=== PATIENT | male | born 1955 | race Two or more races ===

== ENCOUNTER 2023-05-04 09:08 | Emergency (ER) | payer OTHER, MEDICARE, MEDICAID ==
[~2023-05-04] VITALS: Ht 180.3 cm; Wt 80.0 kg
[~2023-05-04 09:08] MED LIST: AMOX-117 PO; CARB-313 PO; DOXA1TAB2 PO; ENTA200T5 PO; GABA600T13 PO; HYDR-3964 PO; IPRA3AMP31 NEB; LEVE250T PO; LORA-268 PO; PARO10TA4 PO; PREG50CA65 PO; QUET25TA36 PO; VALP250S3 PO
[2023-05-04 09:24] VITALS: BP 112/65; PULSE 60; TEMP 97.7; O2SAT 100
[2023-05-04] MEDS ORDERED: LORazepam 2 mg/ml vial ONE (09:58)
[2023-05-04 10:00] VITALS: RESP 17
[2023-05-04] MEDS ORDERED: LORazepam 2 mg/ml vial IV ONE (10:00)
--- NOTE | 2023-05-04 10:15 | NUR ---
pt self-removed iv while attempting to get blood pressure, catheter fully intact. informed. no new order to place another IV.
[2023-05-04 10:28] LABS: BASOPHILS % (AUTO) 0.5 % (0-1); EOSINOPHILS # (AUTO) 0.2 X10'3 (0-0.9); EOSINOPHILS % (AUTO) 1.9 % (0-6); HEMATOCRIT 38.5 % (42.0-52.0); HEMOGLOBIN 12.4 g/dl (14.0-17.9); LYMPHOCYTES # (AUTO) 1.2 X10'3 (1.1-4.8); LYMPHOCYTES % (AUTO) 14.5 % (21-51); MEAN CORPUSCULAR HEMOGLOBIN 28.5 PG (27.0-31.0); MEAN CORPUSCULAR HGB CONC 32.1 g/dL (33.0-36.5); MEAN CORPUSCULAR VOLUME 88.8 FL (78-98); MEAN PLATELET VOLUME 7.9 FL (7.4-10.4); MONOCYTES % (AUTO) 12.1 % (2-12); NEUTROPHILS # (AUTO) 5.8 X10'3 (1.8-7.7); PLATELET COUNT 227 X10'3 (140-440); RED BLOOD COUNT 4.33 X10'6 (4.70-6.10); RED CELL DISTRIBUTION WIDTH 14.3 % (11.5-14.5); WHITE BLOOD COUNT 8.1 X10'3 (4.5-11.0)
[2023-05-04 10:40] LABS: BILIRUBIN,URINE NEGATIVE (Neg); CLARITY,URINE CLOUDY (Clear); COLOR,URINE YELLOW (Yellow); GLUCOSE, URINE NEGATIVE (Neg); KETONES,URINE TRACE mg/dl (Neg); LEUKOCYTE ESTERASE ,URINE LARGE (Neg); NITRITES, URINE NEGATIVE (Neg); OCCULT BLOOD,URINE NEGATIVE (Neg); PH,URINE 6.5 (4.8-8.0); PROTEIN,URINE TRACE mg/dl (Neg); UROBILINOGEN,URINE 0.2 E.U/dL (0.2-1.0)
--- NOTE | 2023-05-04 10:45 | NUR ---
dr. wang and baylee barrios spoke with pt's family. explained poc and pt condition, pt verbalized understanding.
[2023-05-04 10:46] LABS: UA COLLECTION TYPE VOIDED
[2023-05-04 10:47] LABS: BACTERIA,URINE 1+ /HPF (Neg); MUCUS STRANDS NONE SEEN /LPF (Neg); RBC,URINE NONE SEEN /HPF (0-2); SQUAMOUS EPITHELIAL CELL,UR MODERATE /LPF (FEW); TRANSITIONAL EPI CELLS,URINE FEW /HPF; WBC,URINE TNTC /HPF (0-4)
[2023-05-04 10:48] LABS: ALANINE AMINOTRANSFERASE 6 U/L (12-78); ALBUMIN 2.6 G/DL (3.4-5.0); ALBUMIN/GLOBULIN RATIO 0.7 (1.1-1.5); ALKALINE PHOSPHATASE 88 IU/L (46-116); ANION GAP 3 (8-16); ASPARTATE AMINO TRANSFERASE 6 U/L (10-37); BILIRUBIN,TOTAL 0.2 MG/DL (0.1-1.0); BLOOD UREA NITROGEN 22 MG/DL (7-18); BUN/CREATININE RATIO 29.7 (10.0-20.0); CALCIUM 8.7 MG/DL (8.5-10.1); CHLORIDE 105 MMOL/L (99-107); CREATININE 0.74 MG/DL (0.60-1.10); GLUCOSE 53 MG/DL (70-104); SODIUM 138 MMOL/L (135-145); TOTAL CARBON DIOXIDE 30.2 MMOL/L (24-32); TOTAL PROTEIN 6.4 G/DL (6.4-8.2); eCRCL 102 ML/MIN; eGFR > 90 ML/MIN
[2023-05-04 10:57] LABS: MAGNESIUM 2.1 MG/DL (1.5-2.4); PRO BRAIN NATRIURETIC PEPTIDE 115 PG/ML (0-125)
--- NOTE | 2023-05-04 11:45 | NUR ---
spoke with family regarding discharge plan, verbalized understanding. will call desean once pt is transported back to facility.
--- NOTE | 2023-05-04 12:14 | NUR ---
report called to espinoza at [facility]. all questions answered at this time.
== END 2023-05-04 12:17 | disposition home or self-care (01) ==
LOC: ER 09:09
DX: R45.1 Restlessness and agitation (principal); F03.90 Unspecified dementia, unspecified severity, without behavioral disturbance, psychotic disturbance, mood disturbance, and anxiety
CPT/HCPCS: 36415; 71045; 80053; 81001; 83735; 83880; 84484; 85025; 87077; 87088; 87186; 93005; 96374; 99285; J2060

== ENCOUNTER 2023-05-22 11:09 | Emergency (ER) | payer OTHER, MEDICARE, MEDICAID ==
[~2023-05-22] VITALS: Ht 180.3 cm; Wt 60.0 kg
[2023-05-22] MEDS ORDERED: CefTRIAXone 2gm/D5W 50ml BAG 50 ML IV ONE (11:15)
[2023-05-22] MEDS ORDERED: iohexol 350MG/ML 100ml bottle IV ONE (11:18)
[2023-05-22 11:46] VITALS: TEMP 97.8
[2023-05-22 11:46] LABS: BASOPHILS % (AUTO) 0.6 % (0-1); EOSINOPHILS # (AUTO) 0.2 X10'3 (0-0.9); EOSINOPHILS % (AUTO) 2.3 % (0-6); HEMATOCRIT 36.6 % (42.0-52.0); HEMOGLOBIN 12.1 g/dl (14.0-17.9); LYMPHOCYTES # (AUTO) 1.2 X10'3 (1.1-4.8); LYMPHOCYTES % (AUTO) 16.4 % (21-51); MEAN CORPUSCULAR HEMOGLOBIN 28.9 PG (27.0-31.0); MEAN CORPUSCULAR HGB CONC 33.2 g/dL (33.0-36.5); MEAN CORPUSCULAR VOLUME 86.9 FL (78-98); MEAN PLATELET VOLUME 7.1 FL (7.4-10.4); MONOCYTES # (AUTO) 0.6 X10'3 (0-0.9); MONOCYTES % (AUTO) 8.9 % (2-12); NEUTROPHILS # (AUTO) 5.2 X10'3 (1.8-7.7); NEUTROPHILS % (AUTO) 71.8 % (42-75); PLATELET COUNT 291 X10'3 (140-440); RED BLOOD COUNT 4.21 X10'6 (4.70-6.10); WHITE BLOOD COUNT 7.3 X10'3 (4.5-11.0)
[2023-05-22 12:07] LABS: ALANINE AMINOTRANSFERASE 7 U/L (12-78); ALBUMIN 2.4 G/DL (3.4-5.0); ALBUMIN/GLOBULIN RATIO 0.6 (1.1-1.5); ALKALINE PHOSPHATASE 80 IU/L (46-116); ANION GAP 3 (8-16); APTT 32 SECONDS (22-32); ASPARTATE AMINO TRANSFERASE 11 U/L (10-37); BILIRUBIN,TOTAL 0.3 MG/DL (0.1-1.0); BLOOD UREA NITROGEN 29 MG/DL (7-18); BUN/CREATININE RATIO 38.7 (10.0-20.0); CALCIUM 8.6 MG/DL (8.5-10.1); CHLORIDE 103 MMOL/L (99-107); CREATININE 0.75 MG/DL (0.60-1.10); GLUCOSE 82 MG/DL (70-104); POTASSIUM 4.3 MMOL/L (3.5-5.1); PROTHROMBIN TIME 10.7 SECONDS (9.0-12.0); SODIUM 136 MMOL/L (135-145); TOTAL CARBON DIOXIDE 29.8 MMOL/L (24-32); TOTAL PROTEIN 6.7 G/DL (6.4-8.2); eCRCL 80 ML/MIN; eGFR > 90 ML/MIN
[2023-05-22] MEDS ORDERED: levetiracetam inj 500 MG in normal saline 100ml IV soln 95 ML IV SCH (12:15)
[2023-05-22] MEDS ORDERED: levetiracetam inj 500 MG in normal saline 100ml IV soln 100 ML IV ONE (12:19)
[2023-05-22] MEDS ORDERED: LORazepam 0.5 MG tablet PO PRN (15:20)
[2023-05-22 16:27] VITALS: BP 149/87; PULSE 67; RESP 16; O2SAT 96
== END 2023-05-22 16:42 | disposition home or self-care (01) ==
LOC: ER 11:09
DX: R56.9 Unspecified convulsions (principal); E86.0 Dehydration; G20.A1 Parkinson's disease without dyskinesia, without mention of fluctuations; F02.80 Dementia in other diseases classified elsewhere, unspecified severity, without behavioral disturbance, psychotic disturbance, mood disturbance, and anxiety; I25.10 Atherosclerotic heart disease of native coronary artery without angina pectoris; Z79.2 Long term (current) use of antibiotics; Z79.899 Other long term (current) drug therapy; Z88.1 Allergy status to other antibiotic agents; Z88.8 Allergy status to other drugs, medicaments and biological substances
CPT/HCPCS: 36415; 70450; 70496; 70498; 71045; 80053; 82948; 83605; 85025; 85610; 85730; 87040; 93005; 96365; 96367; 99285; C8957; J0696; J1953; J3490; Q9967; A4314

== ENCOUNTER 2023-07-15 16:46 | Emergency (ER) | payer OTHER, MEDICARE, MEDICAID ==
[~2023-07-15] VITALS: Ht 182.9 cm; Wt 72.7 kg
[2023-07-15 17:25] VITALS: BP 120/84; PULSE 60; RESP 18; TEMP 98; O2SAT 100
== END 2023-07-15 18:56 | disposition home or self-care (01) ==
LOC: ER 16:46
DX: G20.A1 Parkinson's disease without dyskinesia, without mention of fluctuations (principal); Z88.8 Allergy status to other drugs, medicaments and biological substances; Z88.1 Allergy status to other antibiotic agents; Z79.2 Long term (current) use of antibiotics; Z79.899 Other long term (current) drug therapy
CPT/HCPCS: 99284

== ENCOUNTER 2024-05-05 16:41 | Inpatient (IN) | payer MEDICARE, OTHER ==
[~2024-05-05] VITALS: Ht 167.6 cm; Wt 67.0 kg
[~2024-05-05 16:41] MED LIST changes: +GABA-1405 PO; -GABA600T13 PO; +VALP250S26 PO; -VALP250S3 PO
[2024-05-05] MEDS: normal saline 1000ml 1,000 ML IV ONE ×4 (17:11→19:28)
[2024-05-05] MEDS: acetaminophen 1,000mg/100ml IV 100 ML IV SCH (17:38)
[2024-05-05] MEDS ORDERED: cefepime 2g/NS 100ml ADVANTAGE 100 ML IV STA (17:43)
[2024-05-05 17:47] LABS: BILIRUBIN,URINE NEGATIVE (Neg); CLARITY,URINE CLOUDY (Clear); COLOR,URINE YELLOW (Yellow); GLUCOSE, URINE NEGATIVE (Neg); KETONES,URINE 15 mg/dl (Neg); LEUKOCYTE ESTERASE ,URINE MODERATE (Neg); NITRITES, URINE NEGATIVE (Neg); OCCULT BLOOD,URINE MODERATE (Neg); PROTEIN,URINE 30 mg/dl (Neg); UROBILINOGEN,URINE 0.2 E.U/dL (0.2-1.0)
[2024-05-05 17:50] LABS: BASOPHILS % (AUTO) 0.1 % (0-1); EOSINOPHILS % (AUTO) 0 % (0-6); HEMATOCRIT 35.7 % (42.0-52.0); HEMOGLOBIN 11.5 g/dl (14.0-17.9); LYMPHOCYTES # (AUTO) 0.3 X10'3 (1.1-4.8); LYMPHOCYTES % (AUTO) 2.7 % (21-51); MEAN CORPUSCULAR HEMOGLOBIN 27.9 PG (27.0-31.0); MEAN CORPUSCULAR HGB CONC 32.2 g/dL (33.0-36.5); MEAN CORPUSCULAR VOLUME 86.8 FL (78-98); MEAN PLATELET VOLUME 7.4 FL (7.4-10.4); MONOCYTES # (AUTO) 0.6 X10'3 (0-0.9); MONOCYTES % (AUTO) 6.3 % (2-12); NEUTROPHILS # (AUTO) 8.5 X10'3 (1.8-7.7); NEUTROPHILS % (AUTO) 90.9 % (42-75); PLATELET COUNT 198 X10'3 (140-440); RED BLOOD COUNT 4.12 X10'6 (4.70-6.10); RED CELL DISTRIBUTION WIDTH 15.7 % (11.5-14.5); WHITE BLOOD COUNT 9.4 X10'3 (4.5-11.0)
[2024-05-05 17:51] LABS: UA COLLECTION TYPE FOLEY CATH
[2024-05-05 17:54] LABS: ALBUMIN 2.4 G/DL (3.4-5.0); ANION GAP 11 (8-16); BLOOD UREA NITROGEN 42 MG/DL (7-18); BUN/CREATININE RATIO 33.9 (10.0-20.0); CALCIUM 8.3 MG/DL (8.5-10.1); CHLORIDE 110 MMOL/L (99-107); CREATININE 1.24 MG/DL (0.60-1.10); GLUCOSE 141 MG/DL (70-104); MAGNESIUM 2.1 MG/DL (1.5-2.4); POTASSIUM 3.5 MMOL/L (3.5-5.1); SODIUM 146 MMOL/L (135-145); TOTAL CARBON DIOXIDE 24.7 MMOL/L (24-32); eCRCL 51 ML/MIN; eGFR 58 ML/MIN
[2024-05-05] MEDS: azithromycin/NS 500mg/250ml 250 ML IV ONE (17:54)
[2024-05-05] MEDS: CEFEPIME 2gm in D5W 50mL 50 ML IV STA (17:58)
[2024-05-05 18:07] LABS: BACTERIA,URINE 3+ /HPF (Neg); SQUAMOUS EPITHELIAL CELL,UR NONE SEEN /LPF (FEW); WBC,URINE TNTC /HPF (0-4)
[2024-05-05] MEDS: amiodarone 150mg/dext, iso-os 100 ML IV ONE (18:32)
[2024-05-05] MEDS: amiodarone/D5 360MG/200ML BAG 200 ML IV SCH ×3 (18:59→23:20)
[2024-05-05] MEDS ORDERED: QUET50TA PO (20:02)
[2024-05-05] MEDS: levetiracetam 250mg tablet PO ONE (20:08)
[2024-05-05] MEDS: acetaminophen 1,000mg/100ml IV 100 ML IV ONE (20:09)
[2024-05-05] MEDS ORDERED: TRAM50TA2 PO (20:11)
[2024-05-05] MEDS ORDERED: MELA3CAP2 PO (20:11)
[2024-05-05] MEDS ORDERED: METO-539 PO (20:11)
[2024-05-05] MEDS ORDERED: TUBE5VIA3 TD (20:11)
[2024-05-05] MEDS ORDERED: FAMO-129 PO (20:11)
[2024-05-05] MEDS ORDERED: SACC250C9 PO (20:11)
[2024-05-05] MEDS ORDERED: VALP500V2 PO (20:11)
[2024-05-05] MEDS ORDERED: TYL650S RC (20:11)
[2024-05-05] MEDS ORDERED: LEVE250T4 PO (20:11)
[2024-05-05] MEDS ORDERED: SPIR25TA PO (20:11)
[2024-05-05] MEDS ORDERED: MAG30ORA PO (20:11)
[2024-05-05] MEDS ORDERED: POLY17PO10 PO (20:11)
[2024-05-05] MEDS ORDERED: DOCU100C40 PO (20:11)
[2024-05-05] MEDS ORDERED: SENN-360 PO (20:11)
[2024-05-05] MEDS ORDERED: MAGN400O6 PO (20:16)
[2024-05-05] MEDS ORDERED: NA P133E4 RC (20:16)
[2024-05-05] MEDS ORDERED: BISA10SU60 RC (20:16)
[2024-05-05] MEDS: NORepinephrine 8mg/ 250ml NS 250 ML IV PRN (20:57)
[2024-05-05] MEDS: NORepinephrine 8mg/ 250ml NS 250 ML IV SCH (21:20)
[2024-05-05] MEDS: carbidoba-levodopa 25-100mg tablet PO SCH (21:40)
[2024-05-05] MEDS: diltiazem 5mg/ml 5ml inj. IV ONE (23:20)
[2024-05-05] MEDS: levetiracetam-NACL1000mg/100ml 100 ML IV ONE (23:27)
[2024-05-05] MEDS: ketamine 50 mg/ml 10ml vial IV ONE (23:52)
[2024-05-06] VITALS (23 sets, daily range): BP systolic 85–150; BP diastolic 53–97; PULSE 60–122; RESP 6–31; O2SAT 93–99
[2024-05-06] MEDS ORDERED: cefepime 2g/NS 100ml ADVANTAGE 100 ML IV SCH
[2024-05-06] MEDS ORDERED: ondansetron/PF 4mg/2ml inj IV PRN (02:05)
[2024-05-06] MEDS ORDERED: acetaminophen 325mg tablet PO PRN (02:05)
[2024-05-06] MEDS ORDERED: magnesium hydroxide 30ml (MOM) UD suspension PO PRN (02:05)
[2024-05-06] MEDS ORDERED: albumin (human) 25% 100ml IV 100 ML in normal saline 500ml IV soln 400 ML IV ONE (02:20)
[2024-05-06] MEDS: ringers solution, lacted 1,000 ML IV ONE ×4 (02:25→07:10)
[2024-05-06] MEDS: oseltamivir phos 75mg capsule PO SCH ×2 (02:40→08:00)
[2024-05-06] MEDS: albumin (Human) 5% 250ml 250 ML IV ONE ×2 (02:55→03:59)
[2024-05-06 02:59] LABS: THYROID STIMULATING HORMONE 0.37 ulU/ml (0.34-4.50)
[2024-05-06] MEDS ORDERED: azithromycin/NS 500mg/250ml 250 ML IV SCH (08:00)
[2024-05-06] MEDS: levetiracetam-NACL1000mg/100ml 100 ML IV SCH (08:31)
[2024-05-06] MEDS: TOBRAMYCIN IV ONE (08:32)
[2024-05-06] MEDS: CefTRIAXone/D5W-Rocephin 1gm 50 ML IV SCH (08:32)
[2024-05-06] MEDS: NORMAL SALINE IV ONE (08:32)
[2024-05-06] MEDS: ringers solution, lacted 1,000 ML IV SCH (12:26)
[2024-05-06] MEDS: enoxaparin 40mg/0.4ml syringe SQ SCH (19:39)
[2024-05-06] MEDS: amiodarone 200mg tablet PO SCH (19:39)
[2024-05-06 19:45] LABS: HEMOGLOBIN A1C 5.4 % (4.5-6.2)
[2024-05-07] VITALS (22 sets, daily range): BP systolic 102–170; BP diastolic 54–100; PULSE 60–63; RESP 10–26; TEMP 97.9–98.4; O2SAT 88–99
[2024-05-07 04:02] LABS: BASOPHILS % (AUTO) 0.2 % (0-1); EOSINOPHILS % (AUTO) 0.3 % (0-6); HEMATOCRIT 31.9 % (42.0-52.0); HEMOGLOBIN 10.6 g/dl (14.0-17.9); LYMPHOCYTES # (AUTO) 0.8 X10'3 (1.1-4.8); LYMPHOCYTES % (AUTO) 11.6 % (21-51); MEAN CORPUSCULAR HEMOGLOBIN 29.3 PG (27.0-31.0); MEAN CORPUSCULAR HGB CONC 33.3 g/dL (33.0-36.5); MEAN CORPUSCULAR VOLUME 88.1 FL (78-98); MEAN PLATELET VOLUME 7.9 FL (7.4-10.4); MONOCYTES # (AUTO) 0.4 X10'3 (0-0.9); MONOCYTES % (AUTO) 5.7 % (2-12); NEUTROPHILS # (AUTO) 5.8 X10'3 (1.8-7.7); NEUTROPHILS % (AUTO) 82.2 % (42-75); PLATELET COUNT 168 X10'3 (140-440); RED BLOOD COUNT 3.62 X10'6 (4.70-6.10); RED CELL DISTRIBUTION WIDTH 15.6 % (11.5-14.5)
[2024-05-07 04:14] LABS: ALBUMIN 2.3 G/DL (3.4-5.0); ANION GAP 4 (8-16); BLOOD UREA NITROGEN 21 MG/DL (7-18); BUN/CREATININE RATIO 24.7 (10.0-20.0); CALCIUM 8.1 MG/DL (8.5-10.1); CHLORIDE 107 MMOL/L (99-107); CREATININE 0.85 MG/DL (0.60-1.10); GLUCOSE 85 MG/DL (70-104); MAGNESIUM 1.8 MG/DL (1.5-2.4); POTASSIUM 3.9 MMOL/L (3.5-5.1); SODIUM 144 MMOL/L (135-145); TOTAL CARBON DIOXIDE 33.3 MMOL/L (24-32); eCRCL 74 ML/MIN; eGFR 89 ML/MIN
[2024-05-07] MEDS: magnesium sulf-water 2g/50mL 50 ML IV ONE (09:10)
[2024-05-07] MEDS: levetiracetam 250mg tablet PO SCH (19:49)
[2024-05-07] MEDS: morphine 2 MG/ML inj. syringe IV PRN (23:40)
[2024-05-08] VITALS (16 sets, daily range): BP systolic 72–161; BP diastolic 46–88; PULSE 57–85; RESP 16–20; TEMP 97.9–98.3; O2SAT 92–98
[2024-05-08 05:58] LABS: BASOPHILS % (AUTO) 0.4 % (0-1); EOSINOPHILS % (AUTO) 0.3 % (0-6); HEMATOCRIT 31.3 % (42.0-52.0); HEMOGLOBIN 10.5 g/dl (14.0-17.9); LYMPHOCYTES # (AUTO) 0.8 X10'3 (1.1-4.8); LYMPHOCYTES % (AUTO) 20.2 % (21-51); MEAN CORPUSCULAR HGB CONC 33.7 g/dL (33.0-36.5); MEAN PLATELET VOLUME 7.8 FL (7.4-10.4); MONOCYTES # (AUTO) 0.4 X10'3 (0-0.9); MONOCYTES % (AUTO) 9.4 % (2-12); NEUTROPHILS # (AUTO) 2.6 X10'3 (1.8-7.7); NEUTROPHILS % (AUTO) 69.7 % (42-75); PLATELET COUNT 161 X10'3 (140-440); RED BLOOD COUNT 3.63 X10'6 (4.70-6.10); RED CELL DISTRIBUTION WIDTH 15.1 % (11.5-14.5); WHITE BLOOD COUNT 3.7 X10'3 (4.5-11.0)
[2024-05-08 06:18] LABS: ALBUMIN 2.2 G/DL (3.4-5.0); ANION GAP 6 (8-16); BLOOD UREA NITROGEN 10 MG/DL (7-18); BUN/CREATININE RATIO 16.9 (10.0-20.0); CALCIUM 8.2 MG/DL (8.5-10.1); CHLORIDE 104 MMOL/L (99-107); CREATININE 0.59 MG/DL (0.60-1.10); GLUCOSE 82 MG/DL (70-104); MAGNESIUM 1.9 MG/DL (1.5-2.4); POTASSIUM 3.3 MMOL/L (3.5-5.1); SODIUM 141 MMOL/L (135-145); TOTAL CARBON DIOXIDE 30.6 MMOL/L (24-32); eCRCL 107 ML/MIN; eGFR > 90 ML/MIN
[2024-05-08] MEDS: metoprolol succinate 25mg (24-HOUR) SR. Tablet PO SCH (07:40)
[2024-05-08] MEDS: pantoprazole 40mg Tablet.DR PO SCH (07:40)
[2024-05-08] MEDS: spironolactone 25 MG tablet PO SCH (07:41)
[2024-05-08] MEDS ORDERED: potassium Cl 40MEQ/1/2NS 520ml 520 ML IV PRN (13:35)
[2024-05-08] MEDS ORDERED: magnesium sulf-water 2g/50mL 50 ML IV PRN (13:35)
[2024-05-08] MEDS ORDERED: magnesium sulf-water 4G/100mL 100 ML IV PRN (13:35)
[2024-05-08] MEDS ORDERED: magnesium Cl slow-release 64mg tablet PO PRN (13:35)
[2024-05-08] MEDS ORDERED: potassium Cl 20 mEq SR tablet PO PRN (13:35)
[2024-05-08] MEDS: potassium Cl 20 mEq SR tablet PO PRN (13:42)
[2024-05-08 14:07] LABS: PRO BRAIN NATRIURETIC PEPTIDE 4089 PG/ML (0-125)
[2024-05-08] MEDS: furosemide 20 MG/2 ML vial IV ONE (15:44)
[2024-05-08] MEDS: ipratropium/albuterol 3ml nebule NEB SCH (16:02)
[2024-05-08] MEDS: ringers solution, lactated 500ml IV solution IV ONE (19:42)
[2024-05-08 19:51] LABS: APTT 31 SECONDS (22-32); INR 1.1 INR; PROTHROMBIN TIME 11.3 SECONDS (9.0-12.0)
[2024-05-08] MEDS: K and/or MAG REPLACEMENT MC SCH (20:00)
[2024-05-08] MEDS: apixaban 5mg tablet PO SCH (21:42)
[2024-05-09] VITALS (20 sets, daily range): BP systolic 76–115; BP diastolic 49–73; PULSE 60–97; RESP 16–24; TEMP 98.5–99.7; O2SAT 91–97
[2024-05-09 05:40] LABS: BASOPHILS % (AUTO) 0.5 % (0-1); EOSINOPHILS % (AUTO) 0.3 % (0-6); HEMATOCRIT 34.5 % (42.0-52.0); HEMOGLOBIN 11.5 g/dl (14.0-17.9); LYMPHOCYTES # (AUTO) 0.7 X10'3 (1.1-4.8); LYMPHOCYTES % (AUTO) 18.7 % (21-51); MEAN CORPUSCULAR HEMOGLOBIN 28.7 PG (27.0-31.0); MEAN CORPUSCULAR HGB CONC 33.3 g/dL (33.0-36.5); MEAN CORPUSCULAR VOLUME 86.4 FL (78-98); MEAN PLATELET VOLUME 8.1 FL (7.4-10.4); MONOCYTES # (AUTO) 0.5 X10'3 (0-0.9); MONOCYTES % (AUTO) 12.3 % (2-12); NEUTROPHILS # (AUTO) 2.7 X10'3 (1.8-7.7); NEUTROPHILS % (AUTO) 68.2 % (42-75); PLATELET COUNT 177 X10'3 (140-440); RED BLOOD COUNT 3.99 X10'6 (4.70-6.10); RED CELL DISTRIBUTION WIDTH 15.1 % (11.5-14.5); WHITE BLOOD COUNT 3.9 X10'3 (4.5-11.0)
[2024-05-09 05:53] LABS: ALBUMIN 2.6 G/DL (3.4-5.0); ANION GAP -1 (8-16); BLOOD UREA NITROGEN 13 MG/DL (7-18); BUN/CREATININE RATIO 16.3 (10.0-20.0); CALCIUM 8.3 MG/DL (8.5-10.1); CHLORIDE 101 MMOL/L (99-107); GLUCOSE 86 MG/DL (70-104); MAGNESIUM 1.8 MG/DL (1.5-2.4); POTASSIUM 3.8 MMOL/L (3.5-5.1); SODIUM 137 MMOL/L (135-145); TOTAL CARBON DIOXIDE 37.2 MMOL/L (24-32); eCRCL 79 ML/MIN; eGFR > 90 ML/MIN
[2024-05-09] MEDS: normal saline 500ml IV soln 500 ML IV ONE ×3 (13:52→20:35)
[2024-05-09] MEDS: normal saline 1000ml 1,000 ML IV SCH (17:40)
[2024-05-10] VITALS (15 sets, daily range): BP systolic 120–173; BP diastolic 76–103; PULSE 60–68; RESP 14–28; TEMP 97.6–98.4; O2SAT 93–97
[2024-05-10 02:53] LABS: BASOPHILS % (AUTO) 0.3 % (0-1); EOSINOPHILS # (AUTO) 0.1 X10'3 (0-0.9); EOSINOPHILS % (AUTO) 1.4 % (0-6); HEMATOCRIT 29.4 % (42.0-52.0); HEMOGLOBIN 9.8 g/dl (14.0-17.9); MEAN CORPUSCULAR HEMOGLOBIN 28.7 PG (27.0-31.0); MEAN CORPUSCULAR HGB CONC 33.4 g/dL (33.0-36.5); MEAN CORPUSCULAR VOLUME 85.8 FL (78-98); MEAN PLATELET VOLUME 7.7 FL (7.4-10.4); MONOCYTES # (AUTO) 0.5 X10'3 (0-0.9); MONOCYTES % (AUTO) 12.7 % (2-12); NEUTROPHILS # (AUTO) 2.6 X10'3 (1.8-7.7); NEUTROPHILS % (AUTO) 61.6 % (42-75); PLATELET COUNT 160 X10'3 (140-440); RED BLOOD COUNT 3.43 X10'6 (4.70-6.10); RED CELL DISTRIBUTION WIDTH 15.1 % (11.5-14.5); WHITE BLOOD COUNT 4.3 X10'3 (4.5-11.0)
[2024-05-10 03:07] LABS: ALBUMIN 2.3 G/DL (3.4-5.0); ANION GAP 5 (8-16); BLOOD UREA NITROGEN 17 MG/DL (7-18); BUN/CREATININE RATIO 17.3 (10.0-20.0); CALCIUM 7.6 MG/DL (8.5-10.1); CHLORIDE 103 MMOL/L (99-107); CREATININE 0.98 MG/DL (0.60-1.10); GLUCOSE 91 MG/DL (70-104); MAGNESIUM 1.8 MG/DL (1.5-2.4); POTASSIUM 3.4 MMOL/L (3.5-5.1); SODIUM 140 MMOL/L (135-145); TOTAL CARBON DIOXIDE 31.8 MMOL/L (24-32); eCRCL 64 ML/MIN; eGFR 76 ML/MIN
[2024-05-10] MEDS: amiodarone 200mg tablet PO SCH (08:03)
[2024-05-10] MEDS ORDERED: POTASSIUM CHLORIDE 20 MEQ/15 ML oral solution PO PRN ×2 (21:55)
[2024-05-11] VITALS (12 sets, daily range): BP systolic 101–176; BP diastolic 57–86; PULSE 56–91; RESP 12–22; TEMP 97.6–98; O2SAT 95–98
[2024-05-11 06:12] LABS: ALBUMIN 2.5 G/DL (3.4-5.0); ANION GAP 4 (8-16); BASOPHILS % (AUTO) 0.3 % (0-1); BLOOD UREA NITROGEN 11 MG/DL (7-18); BUN/CREATININE RATIO 15.1 (10.0-20.0); CALCIUM 8.1 MG/DL (8.5-10.1); CHLORIDE 105 MMOL/L (99-107); CREATININE 0.73 MG/DL (0.60-1.10); EOSINOPHILS # (AUTO) 0.2 X10'3 (0-0.9); EOSINOPHILS % (AUTO) 2.7 % (0-6); GLUCOSE 84 MG/DL (70-104); HEMATOCRIT 31.5 % (42.0-52.0); HEMOGLOBIN 10.4 g/dl (14.0-17.9); LYMPHOCYTES # (AUTO) 1.2 X10'3 (1.1-4.8); LYMPHOCYTES % (AUTO) 20.6 % (21-51); MAGNESIUM 1.6 MG/DL (1.5-2.4); MEAN CORPUSCULAR HEMOGLOBIN 28.6 PG (27.0-31.0); MEAN CORPUSCULAR HGB CONC 33.1 g/dL (33.0-36.5); MEAN CORPUSCULAR VOLUME 86.5 FL (78-98); MEAN PLATELET VOLUME 8.1 FL (7.4-10.4); MONOCYTES # (AUTO) 0.6 X10'3 (0-0.9); MONOCYTES % (AUTO) 10.6 % (2-12); NEUTROPHILS # (AUTO) 3.8 X10'3 (1.8-7.7); NEUTROPHILS % (AUTO) 65.8 % (42-75); PLATELET COUNT 203 X10'3 (140-440); RED BLOOD COUNT 3.64 X10'6 (4.70-6.10); RED CELL DISTRIBUTION WIDTH 15.2 % (11.5-14.5); SODIUM 141 MMOL/L (135-145); TOTAL CARBON DIOXIDE 31.6 MMOL/L (24-32); WHITE BLOOD COUNT 5.7 X10'3 (4.5-11.0); eCRCL 86 ML/MIN; eGFR > 90 ML/MIN
[2024-05-11] MEDS: metoprolol succinate 25mg (24-HOUR) SR. Tablet PO SCH (08:00)
[2024-05-11] MEDS: spironolactone 25 MG tablet PO SCH (08:00)
[2024-05-11] MEDS: EMPAGLIFLOZIN 10 MG TABLET PO SCH (08:20)
[2024-05-11] MEDS: losartan 25mg tablet PO SCH (08:20)
[2024-05-11] MEDS ORDERED: ipratropium/albuterol 3ml nebule NEB PRN (12:45)
[2024-05-11] MEDS: ipratropium/albuterol 3ml nebule NEB SCH (12:45)
[2024-05-11] MEDS: levetiracetam 250mg tablet PO ONE (12:50)
[2024-05-11] MEDS ORDERED: levetiracetam inj 1,500 MG in normal saline 100ml IV soln 100 ML IV SCH (15:20)
[2024-05-11] MEDS ORDERED: levetiracetamNACL 1500mg/100mL 100 ML IV SCH (15:28)
[2024-05-11] MEDS: levetiracetamNACL 1500mg/100mL 100 ML IV ONE (15:54)
[2024-05-11] MEDS: lactose-reduced food (Ensure Enlive) - 237ml bottle PO SCH (18:00)
[2024-05-11] MEDS: levetiracetam-NACL1000mg/100ml 100 ML IV SCH (20:28)
[2024-05-11] MEDS: normal saline 1000ml 1,000 ML IV SCH (20:38)
[2024-05-11] MEDS ORDERED: levetiracetam 250mg tablet PO SCH (21:00)
[2024-05-12] VITALS (9 sets, daily range): BP systolic 83–159; BP diastolic 51–105; PULSE 60–66; RESP 16–28; TEMP 97.5–97.7; O2SAT 95–99
[2024-05-12 06:31] LABS: BASOPHILS % (AUTO) 0.2 % (0-1); EOSINOPHILS # (AUTO) 0.3 X10'3 (0-0.9); EOSINOPHILS % (AUTO) 4.9 % (0-6); HEMOGLOBIN 11.2 g/dl (14.0-17.9); LYMPHOCYTES # (AUTO) 1.4 X10'3 (1.1-4.8); LYMPHOCYTES % (AUTO) 24.7 % (21-51); MEAN CORPUSCULAR HEMOGLOBIN 28.6 PG (27.0-31.0); MEAN CORPUSCULAR VOLUME 86.7 FL (78-98); MEAN PLATELET VOLUME 7.8 FL (7.4-10.4); MONOCYTES # (AUTO) 0.5 X10'3 (0-0.9); MONOCYTES % (AUTO) 9.7 % (2-12); NEUTROPHILS # (AUTO) 3.4 X10'3 (1.8-7.7); NEUTROPHILS % (AUTO) 60.5 % (42-75); PLATELET COUNT 273 X10'3 (140-440); RED BLOOD COUNT 3.92 X10'6 (4.70-6.10); RED CELL DISTRIBUTION WIDTH 14.8 % (11.5-14.5); WHITE BLOOD COUNT 5.6 X10'3 (4.5-11.0)
[2024-05-12 06:37] LABS: ALBUMIN 2.6 G/DL (3.4-5.0); ANION GAP 8 (8-16); BLOOD UREA NITROGEN 10 MG/DL (7-18); BUN/CREATININE RATIO 14.1 (10.0-20.0); CALCIUM 8.3 MG/DL (8.5-10.1); CHLORIDE 103 MMOL/L (99-107); CREATININE 0.71 MG/DL (0.60-1.10); GLUCOSE 80 MG/DL (70-104); MAGNESIUM 1.7 MG/DL (1.5-2.4); POTASSIUM 4.1 MMOL/L (3.5-5.1); SODIUM 140 MMOL/L (135-145); TOTAL CARBON DIOXIDE 28.9 MMOL/L (24-32); eCRCL 89 ML/MIN; eGFR > 90 ML/MIN
[2024-05-12] MEDS ORDERED: spironolactone 25 MG tablet PO SCH (08:00)
[2024-05-12 08:39] LABS: ALANINE AMINOTRANSFERASE 9 U/L (12-78); ALBUMIN/GLOBULIN RATIO 0.6 (1.1-1.5); ALKALINE PHOSPHATASE 69 IU/L (46-116); ASPARTATE AMINO TRANSFERASE 24 U/L (10-37); BILIRUBIN,DIRECT 0.1 MG/DL (0-0.3); BILIRUBIN,TOTAL 0.4 MG/DL (0.1-1.0); TOTAL PROTEIN 6.8 G/DL (6.4-8.2)
[2024-05-12] MEDS: levetiracetamNACL 1500mg/100mL 100 ML IV SCH (09:32)
[2024-05-12] MEDS: LORazepam 2 mg/ml vial IV ONE (10:20)
[2024-05-12] MEDS ORDERED: levetiracetam 250mg tablet PO SCH (21:10)
[2024-05-12] MEDS: clonazePAM 1mg tablet PO SCH (21:12)
[2024-05-12] MEDS: magnesium sulf-water 2g/50mL 50 ML IV ONE (21:36)
[2024-05-12] MEDS: levetiracetam 100mg/ml oral solution 5ml UD cup PO SCH (21:42)
[2024-05-13] VITALS (9 sets, daily range): BP systolic 110–143; BP diastolic 66–98; PULSE 60–64; RESP 16–20; TEMP 97.3–98.1; O2SAT 92–99
[2024-05-13 06:01] LABS: ALBUMIN 2.5 G/DL (3.4-5.0); ANION GAP 5 (8-16); BASOPHILS % (AUTO) 0.3 % (0-1); BLOOD UREA NITROGEN 15 MG/DL (7-18); CALCIUM 7.9 MG/DL (8.5-10.1); CHLORIDE 106 MMOL/L (99-107); CREATININE 0.79 MG/DL (0.60-1.10); EOSINOPHILS # (AUTO) 0.2 X10'3 (0-0.9); EOSINOPHILS % (AUTO) 4.2 % (0-6); GLUCOSE 83 MG/DL (70-104); HEMATOCRIT 33.8 % (42.0-52.0); LYMPHOCYTES # (AUTO) 1.4 X10'3 (1.1-4.8); LYMPHOCYTES % (AUTO) 31.8 % (21-51); MAGNESIUM 2.3 MG/DL (1.5-2.4); MEAN CORPUSCULAR HEMOGLOBIN 28.1 PG (27.0-31.0); MEAN CORPUSCULAR HGB CONC 32.5 g/dL (33.0-36.5); MEAN CORPUSCULAR VOLUME 86.4 FL (78-98); MEAN PLATELET VOLUME 7.4 FL (7.4-10.4); MONOCYTES # (AUTO) 0.5 X10'3 (0-0.9); MONOCYTES % (AUTO) 12.4 % (2-12); NEUTROPHILS # (AUTO) 2.2 X10'3 (1.8-7.7); NEUTROPHILS % (AUTO) 51.3 % (42-75); PLATELET COUNT 337 X10'3 (140-440); POTASSIUM 3.5 MMOL/L (3.5-5.1); RED BLOOD COUNT 3.91 X10'6 (4.70-6.10); RED CELL DISTRIBUTION WIDTH 15.5 % (11.5-14.5); SODIUM 140 MMOL/L (135-145); TOTAL CARBON DIOXIDE 29.4 MMOL/L (24-32); WHITE BLOOD COUNT 4.3 X10'3 (4.5-11.0); eCRCL 80 ML/MIN; eGFR > 90 ML/MIN
[2024-05-14] VITALS (15 sets, daily range): BP systolic 109–160; BP diastolic 65–94; PULSE 57–66; RESP 16–32; TEMP 98.1–98.7; O2SAT 94–100
[2024-05-14 06:10] LABS: BASOPHILS % (AUTO) 0.2 % (0-1); EOSINOPHILS # (AUTO) 0.2 X10'3 (0-0.9); EOSINOPHILS % (AUTO) 2.7 % (0-6); HEMATOCRIT 34.4 % (42.0-52.0); HEMOGLOBIN 11.4 g/dl (14.0-17.9); LYMPHOCYTES % (AUTO) 18.6 % (21-51); MEAN CORPUSCULAR HEMOGLOBIN 28.8 PG (27.0-31.0); MEAN CORPUSCULAR VOLUME 87.2 FL (78-98); MEAN PLATELET VOLUME 7.3 FL (7.4-10.4); MONOCYTES # (AUTO) 0.6 X10'3 (0-0.9); MONOCYTES % (AUTO) 10.5 % (2-12); NEUTROPHILS # (AUTO) 3.8 X10'3 (1.8-7.7); PLATELET COUNT 361 X10'3 (140-440); RED BLOOD COUNT 3.95 X10'6 (4.70-6.10); RED CELL DISTRIBUTION WIDTH 15.1 % (11.5-14.5); WHITE BLOOD COUNT 5.6 X10'3 (4.5-11.0)
[2024-05-14 06:18] LABS: ALBUMIN 2.5 G/DL (3.4-5.0); ANION GAP 8 (8-16); BLOOD UREA NITROGEN 14 MG/DL (7-18); BUN/CREATININE RATIO 23.3 (10.0-20.0); CALCIUM 8.7 MG/DL (8.5-10.1); CHLORIDE 107 MMOL/L (99-107); GLUCOSE 86 MG/DL (70-104); MAGNESIUM 2.1 MG/DL (1.5-2.4); POTASSIUM 3.6 MMOL/L (3.5-5.1); SODIUM 141 MMOL/L (135-145); TOTAL CARBON DIOXIDE 26.2 MMOL/L (24-32); eCRCL 105 ML/MIN; eGFR > 90 ML/MIN
[2024-05-14] MEDS: normal saline 1000ml 1,000 ML IV SCH (10:50)
[2024-05-14] MEDS: normal saline 1000ml 1,000 ML IV ONE ×2 (11:13)
[2024-05-15] VITALS (7 sets, daily range): BP systolic 100–106; BP diastolic 53; PULSE 63–86; RESP 16–19; TEMP 97.9–98.9; O2SAT 95–98
[2024-05-15 06:17] LABS: BASOPHILS % (AUTO) 0.2 % (0-1); EOSINOPHILS # (AUTO) 0.1 X10'3 (0-0.9); EOSINOPHILS % (AUTO) 1.8 % (0-6); HEMATOCRIT 33.7 % (42.0-52.0); HEMOGLOBIN 11.2 g/dl (14.0-17.9); LYMPHOCYTES % (AUTO) 14.1 % (21-51); MEAN CORPUSCULAR HEMOGLOBIN 28.7 PG (27.0-31.0); MEAN CORPUSCULAR HGB CONC 33.1 g/dL (33.0-36.5); MEAN CORPUSCULAR VOLUME 86.8 FL (78-98); MEAN PLATELET VOLUME 7.5 FL (7.4-10.4); MONOCYTES # (AUTO) 0.7 X10'3 (0-0.9); MONOCYTES % (AUTO) 9.2 % (2-12); NEUTROPHILS # (AUTO) 5.3 X10'3 (1.8-7.7); NEUTROPHILS % (AUTO) 74.7 % (42-75); PLATELET COUNT 377 X10'3 (140-440); RED BLOOD COUNT 3.89 X10'6 (4.70-6.10); RED CELL DISTRIBUTION WIDTH 15.3 % (11.5-14.5); WHITE BLOOD COUNT 7.1 X10'3 (4.5-11.0)
[2024-05-15 06:43] LABS: ALBUMIN 2.5 G/DL (3.4-5.0); ANION GAP 3 (8-16); BLOOD UREA NITROGEN 12 MG/DL (7-18); BUN/CREATININE RATIO 16.4 (10.0-20.0); CALCIUM 8.3 MG/DL (8.5-10.1); CHLORIDE 109 MMOL/L (99-107); CREATININE 0.73 MG/DL (0.60-1.10); GLUCOSE 83 MG/DL (70-104); MAGNESIUM 1.9 MG/DL (1.5-2.4); POTASSIUM 4.2 MMOL/L (3.5-5.1); SODIUM 142 MMOL/L (135-145); eCRCL 86 ML/MIN; eGFR > 90 ML/MIN
[2024-05-15] MEDS: metoprolol succinate 25mg (24-HOUR) SR. Tablet PO SCH (08:09)
[2024-05-16] MEDS ORDERED: clonazePAM 0.5mg tablet PO SCH (08:00)
== END 2024-05-15 16:57 | DRG 871 ==
LOC: ER 16:41 → CICU 2S 05-06 02:13 → SUR 3N 05-07 18:33
PROVIDERS: ADMIT Internal Medicine Critical Care Medicine; ATTEND Internal Medicine Critical Care Medicine
PROC: 5A2204Z Restoration of Cardiac Rhythm, Single (ICD-10-PCS; 2024-05-06)
PROC: 06HY33Z Insertion of Infusion Device into Lower Vein, Percutaneous Approach (ICD-10-PCS; 2024-05-06)
PROC: B54BZZA Ultrasonography of Right Lower Extremity Veins, Guidance (ICD-10-PCS; 2024-05-06)
PROC: 4A00X4Z Measurement of Central Nervous Electrical Activity, External Approach (ICD-10-PCS; principal; 2024-05-11)
DX: A41.9 Sepsis, unspecified organism (principal); G93.41 Metabolic encephalopathy; R57.1 Hypovolemic shock; R65.21 Severe sepsis with septic shock; J96.01 Acute respiratory failure with hypoxia; J10.08 Influenza due to other identified influenza virus with other specified pneumonia; N39.0 Urinary tract infection, site not specified; N17.9 Acute kidney failure, unspecified; I50.32 Chronic diastolic (congestive) heart failure; Z66 Do not resuscitate; G20.A1 Parkinson's disease without dyskinesia, without mention of fluctuations; R73.9 Hyperglycemia, unspecified; Z20.822 Contact with and (suspected) exposure to COVID-19; I25.10 Atherosclerotic heart disease of native coronary artery without angina pectoris; I48.91 Unspecified atrial fibrillation; R56.9 Unspecified convulsions; F02.80 Dementia in other diseases classified elsewhere, unspecified severity, without behavioral disturbance, psychotic disturbance, mood disturbance, and anxiety; Z88.8 Allergy status to other drugs, medicaments and biological substances; Z88.1 Allergy status to other antibiotic agents; Z79.899 Other long term (current) drug therapy; Z82.0 Family history of epilepsy and other diseases of the nervous system
CPT/HCPCS: 36415; 70450; 71045; 80048; 80076; 81001; 82140; 82570; 82948; 83036; 83605; 83735; 83880; 83930; 84145; 84300; 84443; 85025; 85610; 85730; 87040; 87081; 87088; 87207; 87502; 87503; 87811; 92508; 92616; 93005; 93306; 94640; 94760; 95816; 96365; 96367; 96375; 97161; 97530; 99291; A4346; A4421; A4615; A4620; A5200; A6213; A6258; A6449; A6590; C1758; G0378; J0131; J0282; J0456; J0692; J0696; J1650; J1940; J1953; J2270; J3260; J3490; J7030; J7040; J7120; P9045

== ENCOUNTER 2024-05-31 18:49 | Inpatient (IN) | payer OTHER, MEDICARE ==
[~2024-05-31] VITALS: Ht 172.7 cm; Wt 65.9 kg
[~2024-05-31 18:49] MED LIST changes: -AMOX-117 PO; +BISA10SU60 RC; +DOCU100C40 PO; +FAMO-129 PO; -HYDR-3964 PO; -IPRA3AMP31 NEB; -LEVE250T PO; +LEVE250T4 PO; +MAG30ORA PO; +MAGN400O6 PO; +MELA3CAP2 PO; +METO-539 PO; +POLY17PO10 PO; -PREG50CA65 PO; -QUET25TA36 PO; +QUET50TA PO; +SACC250C9 PO; +SENN-360 PO; +SPIR25TA PO; +TYL650S RC; -VALP250S26 PO; +VALP500V2 PO
[2024-05-31] MEDS: normal saline 1000ml 1,000 ML IV ONE (19:10)
[2024-05-31] MEDS: calcium chloride 100 MG/1 ML inj IV ONE (19:13)
[2024-05-31 19:23] LABS: BASOPHILS % (AUTO) 0.2 % (0-1); EOSINOPHILS % (AUTO) 0.4 % (0-6); HEMATOCRIT 34.7 % (42.0-52.0); HEMOGLOBIN 11.6 g/dl (14.0-17.9); LYMPHOCYTES # (AUTO) 0.4 X10'3 (1.1-4.8); LYMPHOCYTES % (AUTO) 5.6 % (21-51); MEAN CORPUSCULAR HEMOGLOBIN 29.1 PG (27.0-31.0); MEAN CORPUSCULAR HGB CONC 33.3 g/dL (33.0-36.5); MEAN CORPUSCULAR VOLUME 87.5 FL (78-98); MEAN PLATELET VOLUME 8.3 FL (7.4-10.4); MONOCYTES # (AUTO) 0.6 X10'3 (0-0.9); MONOCYTES % (AUTO) 8.8 % (2-12); NEUTROPHILS # (AUTO) 5.9 X10'3 (1.8-7.7); PLATELET COUNT 153 X10'3 (140-440); RED BLOOD COUNT 3.97 X10'6 (4.70-6.10); RED CELL DISTRIBUTION WIDTH 15.6 % (11.5-14.5); WHITE BLOOD COUNT 6.9 X10'3 (4.5-11.0)
[2024-05-31 19:34] LABS: ALANINE AMINOTRANSFERASE 10 U/L (12-78); ALBUMIN 2.4 G/DL (3.4-5.0); ALBUMIN/GLOBULIN RATIO 0.5 (1.1-1.5); ALKALINE PHOSPHATASE 85 IU/L (46-116); ANION GAP 7 (8-16); ASPARTATE AMINO TRANSFERASE 18 U/L (10-37); BILIRUBIN,TOTAL 0.2 MG/DL (0.1-1.0); BLOOD UREA NITROGEN 22 MG/DL (7-18); BUN/CREATININE RATIO 20.8 (10.0-20.0); CALCIUM 8.6 MG/DL (8.5-10.1); CHLORIDE 103 MMOL/L (99-107); CREATININE 1.06 MG/DL (0.60-1.10); GLUCOSE 195 MG/DL (70-104); POTASSIUM 4.7 MMOL/L (3.5-5.1); SODIUM 138 MMOL/L (135-145); TOTAL CARBON DIOXIDE 27.9 MMOL/L (24-32); TOTAL PROTEIN 7.2 G/DL (6.4-8.2); eCRCL 59 ML/MIN; eGFR 69 ML/MIN
[2024-05-31 19:43] LABS: PRO BRAIN NATRIURETIC PEPTIDE 603 PG/ML (0-125)
[2024-05-31] MEDS: normal saline 1000ml 1,000 ML IV STA (20:16)
[2024-05-31] MEDS: CefTRIAXone/D5W-Rocephin 1gm 50 ML IV ONE (20:17)
[2024-05-31 21:53] LABS: BILIRUBIN,URINE NEGATIVE (Neg); CLARITY,URINE CLOUDY (Clear); COLOR,URINE YELLOW (Yellow); GLUCOSE, URINE 100 mg/dl (Neg); KETONES,URINE TRACE mg/dl (Neg); LEUKOCYTE ESTERASE ,URINE MODERATE (Neg); NITRITES, URINE POSITIVE (Neg); OCCULT BLOOD,URINE TRACE-INTACT (Neg); PROTEIN,URINE 30 mg/dl (Neg); UROBILINOGEN,URINE 0.2 E.U/dL (0.2-1.0)
[2024-05-31 21:59] LABS: UA COLLECTION TYPE FOLEY CATH
[2024-05-31 22:00] LABS: BACTERIA,URINE 2+ /HPF (Neg); SQUAMOUS EPITHELIAL CELL,UR FEW /LPF (FEW); WBC,URINE TNTC /HPF (0-4)
[2024-05-31 22:01] LABS: MUCUS STRANDS NONE SEEN /LPF (Neg); RBC,URINE 0-2 /HPF (0-2); TRANSITIONAL EPI CELLS,URINE F /HPF; WBC CLUMPS,URINE FEW /HPF (NEGATIVE)
[2024-05-31] MEDS: apixaban 5mg tablet PO SCH (22:15)
[2024-05-31] MEDS ORDERED: magnesium sulf-water 4G/100mL 100 ML IV PRN (22:15)
[2024-05-31] MEDS ORDERED: potassium Cl 40MEQ/1/2NS 520ml 520 ML IV PRN (22:15)
[2024-05-31] MEDS ORDERED: acetaminophen 325mg tablet PO PRN (22:15)
[2024-05-31] MEDS ORDERED: potassium Cl 20 mEq SR tablet PO PRN ×2 (22:15)
[2024-05-31] MEDS ORDERED: magnesium hydroxide 30ml (MOM) UD suspension PO PRN (22:15)
[2024-05-31] MEDS ORDERED: mag hydrox/Alum hydrox/simeth 30ml oral suspension PO PRN (22:15)
[2024-05-31] MEDS ORDERED: ondansetron/PF 4mg/2ml inj IV PRN (22:15)
[2024-05-31] MEDS ORDERED: magnesium sulf-water 2g/50mL 50 ML IV PRN (22:15)
[2024-05-31] MEDS ORDERED: magnesium Cl slow-release 64mg tablet PO PRN (22:15)
[2024-05-31] MEDS ORDERED: iohexol 300mg/ml 100ml inj. ONE (22:37)
[2024-05-31] MEDS: normal saline 1000ml 1,000 ML IV SCH (23:59)
[2024-06-01] MEDS: heparin, porcine 5000 units/ml vial SQ SCH (00:40)
[2024-06-01] MEDS: docusate sod 100mg capsule PO SCH ×2 (07:24→20:00)
[2024-06-01] MEDS: CefTRIAXone/D5W-Rocephin 1gm 50 ML IV SCH (07:32)
[2024-06-01] MEDS: K and/or MAG REPLACEMENT MC SCH (07:38)
[2024-06-01 08:19] LABS: BASOPHILS % (AUTO) 0.2 % (0-1); EOSINOPHILS # (AUTO) 0.1 X10'3 (0-0.9); EOSINOPHILS % (AUTO) 0.8 % (0-6); HEMATOCRIT 35.9 % (42.0-52.0); HEMOGLOBIN 11.6 g/dl (14.0-17.9); LYMPHOCYTES # (AUTO) 0.6 X10'3 (1.1-4.8); MEAN CORPUSCULAR HEMOGLOBIN 28.6 PG (27.0-31.0); MEAN CORPUSCULAR HGB CONC 32.2 g/dL (33.0-36.5); MEAN CORPUSCULAR VOLUME 88.8 FL (78-98); MEAN PLATELET VOLUME 7.8 FL (7.4-10.4); MONOCYTES # (AUTO) 1.2 X10'3 (0-0.9); MONOCYTES % (AUTO) 13.8 % (2-12); NEUTROPHILS # (AUTO) 6.6 X10'3 (1.8-7.7); NEUTROPHILS % (AUTO) 78.2 % (42-75); PLATELET COUNT 161 X10'3 (140-440); RED BLOOD COUNT 4.05 X10'6 (4.70-6.10); WHITE BLOOD COUNT 8.4 X10'3 (4.5-11.0)
[2024-06-01 08:35] LABS: PROTHROMBIN TIME 10.9 SECONDS (9.0-12.0)
[2024-06-01 08:47] LABS: ALBUMIN 2.4 G/DL (3.4-5.0); ANION GAP 5 (8-16); BLOOD UREA NITROGEN 16 MG/DL (7-18); BUN/CREATININE RATIO 22.2 (10.0-20.0); CALCIUM 9.1 MG/DL (8.5-10.1); CHLORIDE 107 MMOL/L (99-107); CREATININE 0.72 MG/DL (0.60-1.10); GLUCOSE 86 MG/DL (70-104); POTASSIUM 4.6 MMOL/L (3.5-5.1); SODIUM 141 MMOL/L (135-145); TOTAL CARBON DIOXIDE 29.2 MMOL/L (24-32); eCRCL 87 ML/MIN; eGFR > 90 ML/MIN
[2024-06-01 08:57] LABS: PHOSPHORUS 2.7 MG/DL (2.3-4.5)
[2024-06-01] MEDS ORDERED: magnesium sulf 1 GM/2 ML ONE (09:00)
[2024-06-01 15:00] VITALS: BP 141/69; PULSE 63; RESP 22; TEMP 98; O2SAT 97
[2024-06-01] MEDS ORDERED: spironolactone 25 MG tablet PO SCH (16:50)
[2024-06-01] MEDS ORDERED: LORazepam 0.5 MG tablet PO PRN (16:50)
[2024-06-01 18:00] VITALS: BP 134/90; PULSE 120; RESP 21; TEMP 97.8; O2SAT 99
[2024-06-01] MEDS: Melatonin 3mg tablet PO SCH (20:07)
[2024-06-01] MEDS: acetaminophen 325mg tablet PO PRN (20:07)
[2024-06-01] MEDS: carbidoba-levodopa 25-100mg tablet PO SCH (20:08)
[2024-06-01] MEDS: QUEtiapine 25mg tablet PO SCH (20:08)
[2024-06-01] MEDS: sennosides 8.6mg tablet PO SCH (20:09)
[2024-06-01] MEDS: gabapentin 300mg capsule PO SCH (20:09)
[2024-06-01] MEDS: famotidine 20mg tablet PO SCH (20:10)
[2024-06-01] MEDS: lactobacillus rhamnosus 10,000 MMU CELLS/CAPSULE PO SCH (20:10)
[2024-06-01] MEDS: levetiracetam 250mg tablet PO SCH (20:41)
[2024-06-01] MEDS: valproic acid 250mg capsule PO SCH (20:42)
[2024-06-01 22:00] VITALS: BP 69/36; PULSE 60; RESP 15; TEMP 98.9; O2SAT 96
[2024-06-02] VITALS (10 sets, daily range): BP systolic 80–139; BP diastolic 50–82; PULSE 60–64; RESP 10–20; TEMP 97.2–98.9; O2SAT 93–99
[2024-06-02] MEDS: normal saline 1000ml 1,000 ML IV ONE (00:26)
[2024-06-02 07:44] LABS: BASOPHILS % (AUTO) 0.5 % (0-1); EOSINOPHILS # (AUTO) 0.1 X10'3 (0-0.9); EOSINOPHILS % (AUTO) 2.9 % (0-6); HEMATOCRIT 30.8 % (42.0-52.0); HEMOGLOBIN 10.2 g/dl (14.0-17.9); LYMPHOCYTES # (AUTO) 0.7 X10'3 (1.1-4.8); LYMPHOCYTES % (AUTO) 18.1 % (21-51); MEAN CORPUSCULAR HEMOGLOBIN 28.9 PG (27.0-31.0); MEAN CORPUSCULAR HGB CONC 33.2 g/dL (33.0-36.5); MEAN PLATELET VOLUME 7.9 FL (7.4-10.4); MONOCYTES # (AUTO) 0.7 X10'3 (0-0.9); MONOCYTES % (AUTO) 17.8 % (2-12); NEUTROPHILS # (AUTO) 2.5 X10'3 (1.8-7.7); NEUTROPHILS % (AUTO) 60.7 % (42-75); PLATELET COUNT 159 X10'3 (140-440); RED BLOOD COUNT 3.54 X10'6 (4.70-6.10); WHITE BLOOD COUNT 4.1 X10'3 (4.5-11.0)
[2024-06-02 07:57] LABS: PROTHROMBIN TIME 10.9 SECONDS (9.0-12.0)
[2024-06-02] MEDS: doxazosin mesylate 2mg tablet PO SCH (08:00)
[2024-06-02 08:48] LABS: ANION GAP 9 (8-16); BLOOD UREA NITROGEN 12 MG/DL (7-18); BUN/CREATININE RATIO 16.4 (10.0-20.0); CALCIUM 8.3 MG/DL (8.5-10.1); CHLORIDE 110 MMOL/L (99-107); CREATININE 0.73 MG/DL (0.60-1.10); GLUCOSE 74 MG/DL (70-104); MAGNESIUM 1.8 MG/DL (1.5-2.4); PHOSPHORUS 2.8 MG/DL (2.3-4.5); POTASSIUM 3.9 MMOL/L (3.5-5.1); SODIUM 145 MMOL/L (135-145); TOTAL CARBON DIOXIDE 26.4 MMOL/L (24-32); eCRCL 89 ML/MIN; eGFR > 90 ML/MIN
[2024-06-02 08:50] LABS: PLATELET ESTIMATE NORMAL; TOTAL CELLS COUNTED 100
[2024-06-02] MEDS: ENTACAPONE 200MG TABLET PO SCH ×2 (13:11→20:36)
[2024-06-03] VITALS (8 sets, daily range): BP systolic 109–146; BP diastolic 64–74; PULSE 60–71; RESP 14–21; TEMP 97.7–100.3; O2SAT 91–96
[2024-06-03 07:05] LABS: PROTHROMBIN TIME 10.6 SECONDS (9.0-12.0)
[2024-06-03 07:08] LABS: BASOPHILS % (AUTO) 0.5 % (0-1); EOSINOPHILS # (AUTO) 0.2 X10'3 (0-0.9); LYMPHOCYTES # (AUTO) 1.1 X10'3 (1.1-4.8); MONOCYTES # (AUTO) 0.9 X10'3 (0-0.9); NEUTROPHILS # (AUTO) 3.2 X10'3 (1.8-7.7); WHITE BLOOD COUNT 5.5 X10'3 (4.5-11.0)
[2024-06-03 07:11] LABS: HEMATOCRIT 30.7 % (42.0-52.0); HEMOGLOBIN 10.2 g/dl (14.0-17.9); LYMPHOCYTES % (AUTO) 19.9 % (21-51); MEAN CORPUSCULAR HEMOGLOBIN 29.1 PG (27.0-31.0); MEAN CORPUSCULAR HGB CONC 33.3 g/dL (33.0-36.5); MEAN CORPUSCULAR VOLUME 87.3 FL (78-98); MEAN PLATELET VOLUME 7.9 FL (7.4-10.4); MONOCYTES % (AUTO) 16.3 % (2-12); NEUTROPHILS % (AUTO) 59.3 % (42-75); PLATELET COUNT 172 X10'3 (140-440); RED BLOOD COUNT 3.52 X10'6 (4.70-6.10); RED CELL DISTRIBUTION WIDTH 15.7 % (11.5-14.5)
[2024-06-03 07:17] LABS: ANION GAP 3 (8-16); BLOOD UREA NITROGEN 11 MG/DL (7-18); BUN/CREATININE RATIO 14.5 (10.0-20.0); CALCIUM 8.3 MG/DL (8.5-10.1); CHLORIDE 110 MMOL/L (99-107); CREATININE 0.76 MG/DL (0.60-1.10); GLUCOSE 86 MG/DL (70-104); MAGNESIUM 1.9 MG/DL (1.5-2.4); PHOSPHORUS 2.6 MG/DL (2.3-4.5); POTASSIUM 3.8 MMOL/L (3.5-5.1); SODIUM 143 MMOL/L (135-145); TOTAL CARBON DIOXIDE 29.7 MMOL/L (24-32); eCRCL 86 ML/MIN; eGFR > 90 ML/MIN
[2024-06-03] MEDS: sulfamethoxazole/trimethoprim DS (800/160mg) tablet PO SCH (17:28)
[2024-06-04 03:30] VITALS: RESP 18; O2SAT 91
[2024-06-04 06:00] VITALS: BP 131/79; PULSE 60; RESP 19; TEMP 97.9; O2SAT 92
[2024-06-04 06:14] LABS: PROTHROMBIN TIME 10.9 SECONDS (9.0-12.0)
[2024-06-04 06:29] LABS: BASOPHILS % (AUTO) 0.5 % (0-1); EOSINOPHILS # (AUTO) 0.2 X10'3 (0-0.9); EOSINOPHILS % (AUTO) 6.2 % (0-6); HEMATOCRIT 29.6 % (42.0-52.0); HEMOGLOBIN 9.8 g/dl (14.0-17.9); LYMPHOCYTES # (AUTO) 1.3 X10'3 (1.1-4.8); LYMPHOCYTES % (AUTO) 33.2 % (21-51); MEAN CORPUSCULAR HEMOGLOBIN 28.5 PG (27.0-31.0); MEAN CORPUSCULAR HGB CONC 33.2 g/dL (33.0-36.5); MEAN CORPUSCULAR VOLUME 85.9 FL (78-98); MEAN PLATELET VOLUME 7.2 FL (7.4-10.4); MONOCYTES # (AUTO) 0.7 X10'3 (0-0.9); MONOCYTES % (AUTO) 18.4 % (2-12); NEUTROPHILS # (AUTO) 1.6 X10'3 (1.8-7.7); NEUTROPHILS % (AUTO) 41.7 % (42-75); PLATELET COUNT 170 X10'3 (140-440); RED BLOOD COUNT 3.45 X10'6 (4.70-6.10); RED CELL DISTRIBUTION WIDTH 15.6 % (11.5-14.5); WHITE BLOOD COUNT 3.8 X10'3 (4.5-11.0)
[2024-06-04 06:49] LABS: ANION GAP 6 (8-16); BLOOD UREA NITROGEN 13 MG/DL (7-18); BUN/CREATININE RATIO 15.1 (10.0-20.0); CALCIUM 8.2 MG/DL (8.5-10.1); CHLORIDE 108 MMOL/L (99-107); CREATININE 0.86 MG/DL (0.60-1.10); GLUCOSE 85 MG/DL (70-104); MAGNESIUM 1.9 MG/DL (1.5-2.4); PHOSPHORUS 3.2 MG/DL (2.3-4.5); SODIUM 143 MMOL/L (135-145); TOTAL CARBON DIOXIDE 28.8 MMOL/L (24-32); eCRCL 76 ML/MIN; eGFR 88 ML/MIN
[2024-06-04 08:00] VITALS: RESP 19; O2SAT 60
[2024-06-04 11:00] VITALS: PULSE 60; RESP 12; TEMP 97.1; O2SAT 91
== END 2024-06-04 16:10 | DRG 871 ==
LOC: ER 18:50 → ED HOLD 22:31 → PCU 3S 06-01 14:59
PROVIDERS: ADMIT Internal Medicine Pulmonary Disease; ATTEND Family Medicine
PROC: BW211ZZ Computerized Tomography (CT Scan) of Abdomen and Pelvis using Low Osmolar Contrast (ICD-10-PCS; principal; 2024-05-31)
DX: A41.9 Sepsis, unspecified organism (principal); G93.41 Metabolic encephalopathy; R65.21 Severe sepsis with septic shock; N39.0 Urinary tract infection, site not specified; I50.32 Chronic diastolic (congestive) heart failure; I25.10 Atherosclerotic heart disease of native coronary artery without angina pectoris; I11.0 Hypertensive heart disease with heart failure; G20.A1 Parkinson's disease without dyskinesia, without mention of fluctuations; N40.0 Benign prostatic hyperplasia without lower urinary tract symptoms; F02.80 Dementia in other diseases classified elsewhere, unspecified severity, without behavioral disturbance, psychotic disturbance, mood disturbance, and anxiety; G30.9 Alzheimer's disease, unspecified; Z66 Do not resuscitate; Z88.8 Allergy status to other drugs, medicaments and biological substances; Z88.1 Allergy status to other antibiotic agents; Z91.011 Allergy to milk products; Z79.899 Other long term (current) drug therapy
CPT/HCPCS: 36415; 71045; 74177; 80048; 80053; 80164; 81001; 82948; 83605; 83735; 83880; 84100; 84145; 84484; 85007; 85025; 85610; 87040; 87077; 87088; 87186; 92508; 92616; 93005; 96365; 97110; 97161; 97530; 99291; A4615; A4620; A5200; A6212; C1758; G0378; J0696; J1644; J3475; J3490; J7030; Q9967

== ENCOUNTER 2024-08-13 20:18 | Emergency (ER) | payer OTHER, MEDICARE ==
[~2024-08-13] VITALS: Ht 182.9 cm; Wt 75.0 kg
[2024-08-13] MEDS: normal saline 1000ML IV soln IV ONE (21:28)
[2024-08-13 21:33] LABS: BASOPHILS % (AUTO) 0.9 % (0-1); EOSINOPHILS # (AUTO) 0.2 X10'3 (0-0.9); EOSINOPHILS % (AUTO) 3.3 % (0-6); HEMATOCRIT 30.1 % (42.0-52.0); HEMOGLOBIN 9.9 g/dl (14.0-17.9); LYMPHOCYTES # (AUTO) 1.3 X10'3 (1.1-4.8); LYMPHOCYTES % (AUTO) 27.5 % (21-51); MEAN CORPUSCULAR HEMOGLOBIN 28.4 PG (27.0-31.0); MEAN CORPUSCULAR HGB CONC 33.1 g/dL (33.0-36.5); MEAN CORPUSCULAR VOLUME 85.9 FL (78-98); MEAN PLATELET VOLUME 6.9 FL (7.4-10.4); MONOCYTES # (AUTO) 0.5 X10'3 (0-0.9); MONOCYTES % (AUTO) 11.3 % (2-12); NEUTROPHILS # (AUTO) 2.7 X10'3 (1.8-7.7); PLATELET COUNT 273 X10'3 (140-440); RED CELL DISTRIBUTION WIDTH 16.2 % (11.5-14.5); WHITE BLOOD COUNT 4.8 X10'3 (4.5-11.0)
[2024-08-13 21:43] LABS: ALBUMIN 2.3 G/DL (3.4-5.0); ANION GAP 2 (8-16); BLOOD UREA NITROGEN 25 MG/DL (7-18); BUN/CREATININE RATIO 32.5 (10.0-20.0); CALCIUM 8.2 MG/DL (8.5-10.1); CHLORIDE 108 MMOL/L (99-107); CREATININE 0.77 MG/DL (0.60-1.10); GLUCOSE 89 MG/DL (70-104); POTASSIUM 3.9 MMOL/L (3.5-5.1); SODIUM 142 MMOL/L (135-145); TOTAL CARBON DIOXIDE 31.9 MMOL/L (24-32); eCRCL 96 ML/MIN; eGFR > 90 ML/MIN
[2024-08-13 22:57] LABS: BILIRUBIN,URINE NEGATIVE (Neg); CLARITY,URINE CLOUDY (Clear); COLOR,URINE YELLOW (Yellow); GLUCOSE, URINE NEGATIVE (Neg); KETONES,URINE NEGATIVE (Neg); LEUKOCYTE ESTERASE ,URINE SMALL (Neg); NITRITES, URINE POSITIVE (Neg); OCCULT BLOOD,URINE SMALL (Neg); PROTEIN,URINE NEGATIVE (Neg); UROBILINOGEN,URINE 0.2 E.U/dL (0.2-1.0)
[2024-08-13 23:03] LABS: UA COLLECTION TYPE STRAIGHT CATH
[2024-08-13 23:07] LABS: SQUAMOUS EPITHELIAL CELL,UR FEW /LPF (FEW)
[2024-08-13 23:08] LABS: BACTERIA,URINE 4+ /HPF (Neg); RBC,URINE 0-2 /HPF (0-2); WBC,URINE 20-30 /HPF (0-4)
[2024-08-13] MEDS ORDERED: SULF1TAB49 PO (23:30)
[2024-08-13] MEDS: sulfamethoxazole/trimethoprim DS (800/160mg) tablet PO ONE (23:34)
[2024-08-14 00:04] VITALS: BP 150/89; PULSE 60; RESP 16; TEMP 97.4; O2SAT 97
== END 2024-08-14 00:11 | disposition home or self-care (01) ==
LOC: ER 20:19
DX: E86.0 Dehydration (principal); N39.0 Urinary tract infection, site not specified; G30.9 Alzheimer's disease, unspecified; G20.A1 Parkinson's disease without dyskinesia, without mention of fluctuations; F02.80 Dementia in other diseases classified elsewhere, unspecified severity, without behavioral disturbance, psychotic disturbance, mood disturbance, and anxiety; I25.10 Atherosclerotic heart disease of native coronary artery without angina pectoris; Z88.1 Allergy status to other antibiotic agents; Z88.8 Allergy status to other drugs, medicaments and biological substances
CPT/HCPCS: 36415; 71045; 80048; 81001; 83605; 83735; 84145; 85025; 87040; 87077; 87088; 87186; 93005; 96360; 99285; J7030; C1758

== ENCOUNTER 2024-10-01 07:52 | Inpatient (IN) | payer OTHER, MEDICARE ==
[~2024-10-01] VITALS: Ht 182.9 cm; Wt 55.1 kg
[2024-10-01] VITALS (13 sets, daily range): BP systolic 85–136; BP diastolic 50–78; PULSE 60–69; RESP 12–16; O2SAT 95–100
[2024-10-01] MEDS ORDERED: NORepinephrine 8mg/ 250ml NS 250 ML IV PRN (08:20)
[2024-10-01] MEDS: normal saline 1000ml 1,000 ML IV ONE (08:20)
[2024-10-01] MEDS: NORepinephrine 8mg/ 250ml NS 250 ML IV PRN (08:25)
[2024-10-01 08:34] LABS: BASOPHILS % (AUTO) 0.2 % (0-1); EOSINOPHILS % (AUTO) 0.1 % (0-6); HEMATOCRIT 30.4 % (42.0-52.0); LYMPHOCYTES # (AUTO) 0.3 X10'3 (1.1-4.8); LYMPHOCYTES % (AUTO) 2.4 % (21-51); MEAN CORPUSCULAR HEMOGLOBIN 28.5 PG (27.0-31.0); MEAN CORPUSCULAR HGB CONC 32.9 g/dL (33.0-36.5); MEAN CORPUSCULAR VOLUME 86.6 FL (78-98); MONOCYTES # (AUTO) 0.4 X10'3 (0-0.9); MONOCYTES % (AUTO) 2.6 % (2-12); NEUTROPHILS % (AUTO) 94.7 % (42-75); PLATELET COUNT 200 X10'3 (140-440); RED BLOOD COUNT 3.52 X10'6 (4.70-6.10); RED CELL DISTRIBUTION WIDTH 16.5 % (11.5-14.5); WHITE BLOOD COUNT 13.8 X10'3 (4.5-11.0)
[2024-10-01 09:21] LABS: BILIRUBIN,URINE SMALL (Neg); CLARITY,URINE TURBID (Clear); COLOR,URINE YELLOW (Yellow); GLUCOSE, URINE NEGATIVE (Neg); KETONES,URINE 15 mg/dl (Neg); LEUKOCYTE ESTERASE ,URINE MODERATE (Neg); OCCULT BLOOD,URINE LARGE (Neg); PH,URINE 5.5 (4.8-8.0); PROTEIN,URINE 100 mg/dl (Neg)
[2024-10-01] MEDS: CefTRIAXone/D5W-Rocephin 1gm 50 ML IV ONE (09:21)
[2024-10-01 09:34] LABS: UA COLLECTION TYPE FOLEY CATH
[2024-10-01] MEDS ORDERED: acetaminophen 325mg tablet PO PRN ×2 (09:35)
[2024-10-01] MEDS ORDERED: magnesium hydroxide 30ml (MOM) UD suspension PO PRN (09:35)
[2024-10-01] MEDS ORDERED: morphine 2 MG/ML inj. syringe IV PRN (09:35)
[2024-10-01] MEDS ORDERED: ondansetron/PF 4mg/2ml inj IV PRN (09:35)
[2024-10-01] MEDS ORDERED: morphine 4 MG/ML inj SYRINge IV PRN (09:35)
[2024-10-01 09:36] LABS: BACTERIA,URINE 4+ /HPF (Neg); NITRITES, URINE NEGATIVE (Neg); RBC,URINE TNTC /HPF (0-2); SQUAMOUS EPITHELIAL CELL,UR FEW /LPF (FEW); TRANSITIONAL EPI CELLS,URINE FEW /HPF
[2024-10-01] MEDS: ringers solution, lacted 1,000 ML IV ONE ×4 (09:41→16:57)
[2024-10-01] MEDS: LidoCAINE 2% Topical Jelly 11mL syringe (UROJET) TOP ONE (09:42)
[2024-10-01] MEDS: ringers solution, lacted 1,000 ML IV SCH (09:46)
[2024-10-01 09:49] LABS: ALBUMIN 2.5 G/DL (3.4-5.0); ANION GAP 5 (8-16); BLOOD UREA NITROGEN 30 MG/DL (7-18); BUN/CREATININE RATIO 23.4 (10.0-20.0); CALCIUM 8.5 MG/DL (8.5-10.1); CHLORIDE 112 MMOL/L (99-107); CREATININE 1.28 MG/DL (0.60-1.10); GLUCOSE 106 MG/DL (70-104); POTASSIUM 3.4 MMOL/L (3.5-5.1); SODIUM 147 MMOL/L (135-145); TOTAL CARBON DIOXIDE 30.3 MMOL/L (24-32); eCRCL 42 ML/MIN; eGFR 56 ML/MIN
[2024-10-01 10:53] LABS: THYROID STIMULATING HORMONE 1.95 ulU/ml (0.34-4.50)
[2024-10-01] MEDS: carbidopa/levodopa 10/100mg tab PO SCH (16:00)
[2024-10-01] MEDS ORDERED: AMI200T PO (16:41)
[2024-10-01] MEDS ORDERED: APIX5TAB3 PO (16:41)
[2024-10-01] MEDS ORDERED: IPRA3AMP9 NEB (16:45)
[2024-10-01] MEDS ORDERED: LEVE100S PO (16:46)
[2024-10-01] MEDS ORDERED: MELA3TAB39 PO (16:48)
[2024-10-01] MEDS ORDERED: LOP12.5T PO (16:50)
[2024-10-01] MEDS ORDERED: VALP250S26 PO (16:58)
[2024-10-01] MEDS ORDERED: TRAM50TA2 PO (16:58)
[2024-10-01] MEDS ORDERED: ACET650T12 PO (17:04)
[2024-10-01] MEDS ORDERED: ACET650T11 PO (17:04)
[2024-10-01] MEDS: NORMAL SALINE IV ONE (17:16)
[2024-10-01] MEDS: TOBRAMYCIN IV ONE (17:16)
[2024-10-01] MEDS: heparin, porcine 5000 units/ml vial SQ SCH (20:45)
[2024-10-01] MEDS: famotidine/PF 10 mg/ml inj IV SCH (20:46)
[2024-10-02] VITALS (24 sets, daily range): BP systolic 103–193; BP diastolic 51–114; PULSE 60–69; RESP 10–17; TEMP 97.3–97.4; O2SAT 76–100
[2024-10-02 04:53] LABS: ALBUMIN 2.1 G/DL (3.4-5.0); ANION GAP 5 (8-16); BLOOD UREA NITROGEN 22 MG/DL (7-18); BUN/CREATININE RATIO 35.5 (10.0-20.0); CALCIUM 8.4 MG/DL (8.5-10.1); CHLORIDE 112 MMOL/L (99-107); CREATININE 0.62 MG/DL (0.60-1.10); GLUCOSE 76 MG/DL (70-104); MAGNESIUM 1.7 MG/DL (1.5-2.4); SODIUM 144 MMOL/L (135-145); TOTAL CARBON DIOXIDE 27.4 MMOL/L (24-32); eCRCL 87 ML/MIN; eGFR > 90 ML/MIN
[2024-10-02 04:54] LABS: PHOSPHORUS 2.3 MG/DL (2.3-4.5); POTASSIUM 4.2 MMOL/L (3.5-5.1)
[2024-10-02] MEDS: CefTRIAXone/D5W-Rocephin 1gm 50 ML IV SCH (07:42)
[2024-10-02] MEDS ORDERED: LIDOcaine 2% Viscous 15ml cup ONE (11:51)
[2024-10-02] MEDS ORDERED: fentaNYL/PF 50MCG/1 ML 2ML syringe ONE (12:26)
[2024-10-02] MEDS ORDERED: MIDAZolam 1 MG/ML 5ML VIAL ONE (12:26)
[2024-10-02] MEDS ORDERED: simethicone 40mg/0.6ml oral drops 30ml ONE (13:50)
[2024-10-02] MEDS ORDERED: acetaminophen 325mg/10.15ml oral unit dose solution PEG PRN ×2 (17:02→17:03)
[2024-10-02] MEDS ORDERED: magnesium hydroxide 30ml (MOM) UD suspension PEG PRN (17:04)
[2024-10-02] MEDS ORDERED: hydrALAZINE 20mg/ml inj. IV PRN (18:50)
[2024-10-02] MEDS: apixaban 5mg tablet PEG SCH (21:09)
[2024-10-02] MEDS: carbidopa/levodopa 10/100mg tab PEG SCH (23:44)
[2024-10-03 02:00] VITALS: BP 127/74; PULSE 60; RESP 16; TEMP 97.3; O2SAT 95
[2024-10-03 06:00] VITALS: BP 130/83; PULSE 65; RESP 12; TEMP 97.4; O2SAT 92
[2024-10-03 06:15] LABS: ALBUMIN 2.5 G/DL (3.4-5.0); ANION GAP 3 (8-16); BLOOD UREA NITROGEN 13 MG/DL (7-18); CALCIUM 8.8 MG/DL (8.5-10.1); CHLORIDE 104 MMOL/L (99-107); CREATININE 0.65 MG/DL (0.60-1.10); GLUCOSE 124 MG/DL (70-104); MAGNESIUM 1.7 MG/DL (1.5-2.4); PHOSPHORUS 2.6 MG/DL (2.3-4.5); POTASSIUM 3.4 MMOL/L (3.5-5.1); SODIUM 141 MMOL/L (135-145); TOTAL CARBON DIOXIDE 33.8 MMOL/L (24-32); eCRCL 83 ML/MIN; eGFR > 90 ML/MIN
[2024-10-03 08:07] LABS: BASOPHILS % (AUTO) 0.2 % (0-1); EOSINOPHILS # (AUTO) 0.1 X10'3 (0-0.9); EOSINOPHILS % (AUTO) 0.9 % (0-6); HEMATOCRIT 36.8 % (42.0-52.0); HEMOGLOBIN 12.2 g/dl (14.0-17.9); LYMPHOCYTES # (AUTO) 0.6 X10'3 (1.1-4.8); LYMPHOCYTES % (AUTO) 8.1 % (21-51); MEAN CORPUSCULAR HEMOGLOBIN 28.1 PG (27.0-31.0); MEAN CORPUSCULAR HGB CONC 33.2 g/dL (33.0-36.5); MEAN CORPUSCULAR VOLUME 84.7 FL (78-98); MEAN PLATELET VOLUME 7.8 FL (7.4-10.4); MONOCYTES # (AUTO) 0.6 X10'3 (0-0.9); MONOCYTES % (AUTO) 8.2 % (2-12); NEUTROPHILS # (AUTO) 5.7 X10'3 (1.8-7.7); NEUTROPHILS % (AUTO) 82.6 % (42-75); PLATELET COUNT 186 X10'3 (140-440); RED BLOOD COUNT 4.35 X10'6 (4.70-6.10); RED CELL DISTRIBUTION WIDTH 16.1 % (11.5-14.5); WHITE BLOOD COUNT 6.9 X10'3 (4.5-11.0)
[2024-10-03] MEDS: pantoprazole 40 MG vial IV SCH (08:27)
[2024-10-03] MEDS ORDERED: magnesium sulf-water 4G/100mL 100 ML IV PRN ×2 (10:55)
[2024-10-03] MEDS ORDERED: magnesium sulf-water 2g/50mL 50 ML IV PRN ×2 (10:55)
[2024-10-03] MEDS ORDERED: potassium Cl 20 mEq SR tablet PO PRN ×4 (10:55)
[2024-10-03] MEDS ORDERED: potassium Cl 40MEQ/1/2NS 520ml 520 ML IV PRN ×2 (10:55)
[2024-10-03] MEDS ORDERED: magnesium Cl slow-release 64mg tablet PO PRN (10:55)
[2024-10-03 11:00] VITALS: BP 105/64; PULSE 60; RESP 15; TEMP 97.2; O2SAT 90
[2024-10-03] MEDS: metoprolol succinate 25mg (24-HOUR) SR. Tablet PO ONE (11:42)
[2024-10-03] MEDS: LidoCAINE 2% Topical Jelly 11mL syringe (UROJET) TOP ONE (11:55)
[2024-10-03] MEDS: POTASSIUM CHLORIDE 20 MEQ/15 ML oral solution PEG ONE (12:19)
[2024-10-03] MEDS: metoprolol tartrate 12.5mg (1/2 tablet) PEG ONE (12:23)
[2024-10-03 12:32] VITALS: BP_SYST 133; PULSE 62
[2024-10-03] MEDS: metoprolol tartrate 12.5mg (1/2 tablet) PEG SCH (12:32)
[2024-10-03] MEDS ORDERED: K and/or MAG REPLACEMENT MC SCH ×2 (20:00)
[2024-10-04] MEDS ORDERED: metoprolol succinate 25mg (24-HOUR) SR. Tablet PO SCH (08:00)
== END 2024-10-03 15:04 | DRG 871 ==
LOC: ER 07:54 → ED HOLD 09:37 → CICU 2S 12:20 → PCU 3S 10-02 16:28
PROVIDERS: ADMIT Internal Medicine Critical Care Medicine; ATTEND Internal Medicine Critical Care Medicine
PROC: 0DH63UZ Insertion of Feeding Device into Stomach, Percutaneous Approach (ICD-10-PCS; principal; 2024-10-02)
DX: A41.9 Sepsis, unspecified organism (principal); J96.01 Acute respiratory failure with hypoxia; R65.21 Severe sepsis with septic shock; N17.9 Acute kidney failure, unspecified; I50.32 Chronic diastolic (congestive) heart failure; G93.40 Encephalopathy, unspecified; Z66 Do not resuscitate; G20.A1 Parkinson's disease without dyskinesia, without mention of fluctuations; E86.0 Dehydration; I25.10 Atherosclerotic heart disease of native coronary artery without angina pectoris; R13.10 Dysphagia, unspecified; N31.9 Neuromuscular dysfunction of bladder, unspecified; N30.90 Cystitis, unspecified without hematuria; F02.C0 Dementia in other diseases classified elsewhere, severe, without behavioral disturbance, psychotic disturbance, mood disturbance, and anxiety; G30.9 Alzheimer's disease, unspecified; I48.91 Unspecified atrial fibrillation; I11.0 Hypertensive heart disease with heart failure; Z91.011 Allergy to milk products; Z88.8 Allergy status to other drugs, medicaments and biological substances; Z79.899 Other long term (current) drug therapy; Z88.1 Allergy status to other antibiotic agents; Z93.1 Gastrostomy status
CPT/HCPCS: 36415; 43246; 70450; 71045; 76770; 80048; 81001; 82948; 83605; 83735; 84100; 84145; 84443; 85025; 87040; 87077; 87081; 87088; 87186; 93005; 96365; 96367; 97110; 97161; 99152; 99285; A4615; A6449; A6590; B4087; C1758; G0378; J0696; J1644; J2250; J2470; J3010; J3260; J3490; J7030; J7120

== ENCOUNTER 2024-12-18 14:06 | Emergency (ER) | payer OTHER, MEDICARE ==
[~2024-12-18] VITALS: Ht 170.2 cm; Wt 59.1 kg
[~2024-12-18 14:06] MED LIST changes: +ACET650T11 PO; +ACET650T12 PO; +AMI200T PO; +APIX5TAB3 PO; +IPRA3AMP9 NEB; +LEVE100S PO; -LEVE250T4 PO; +LOP12.5T PO; -MELA3CAP2 PO; +MELA3TAB39 PO; -METO-539 PO; -QUET50TA PO; +TRAM50TA2 PO; -TYL650S RC; +VALP250S26 PO; -VALP500V2 PO
--- NOTE | 2024-12-18 14:09 | Physician Documentation ---
History of Present Illness ~ General Stated Complaint: GENERAL ILLNESS Time Seen by MD: 14:36 Primary Medical Doctor: CATHY Source: family, EMS, EMS notes reviewed Exam Limitations: clinical condition (Dementia) History of Present Illness Initial Comments Chief Complaint: Chest pain Caveat: Dementia Independent Historians: Son and [id number] History of Present Illness: Patient is a 69-year-old man DNR selective treatment with dementia brought in by paramedics from [facility]. Family was with him earlier today celebrating his birthday when the patient complained of sharp chest pain. Patient is denying any chest pain currently. Son states that he noticed he was coughing earlier. No known fever. Patient was noted by family to be eating less. Review of systems: All systems were reviewed and are negative except for what is indicated in the history of present illness. Past Medical History: Dementia, Parkinson's, HTN, CVA, pneumonia, BPH, COPD coronary artery disease, depression, congestive heart failure, myasthenia gravis, atrial fibrillation Past Surgical History: Pacemaker Social History: Medications: Reviewed as documented Nursing Notes Allergies: Reviewed as documented in Nursing Notes Medication Reconciliation Allergies: Coded Allergies: milk (Verified Allergy, Intermediate, 10/01/24) SOB diphenhydramine (Verified Allergy, Unknown, 10/01/24) doxycycline (Verified Allergy, Unknown, 10/01/24) meclizine (Verified Allergy, Unknown, 10/01/24) niacin (Verified Allergy, Unknown, 10/01/24) nitroglycerin (Verified Allergy, Unknown, 10/01/24) ropinirole (Verified Allergy, Unknown, 07/15/23) Uncoded Allergies: REQUIP (Allergy, Unknown, 08/13/24) Scheduled Acetaminophen (Acetaminophen), 650 MG PO DAILY, (Reported) Amiodarone Hcl (Cordarone), 1 TAB PO DAILY, (Reported) Apixaban (Eliquis), 1 TAB PO Q12H, (Reported) Bisacodyl (Dulcolax), 1 SUPP RC DAILY, (Reported) Carbidopa/Levodopa (Carbidopa-Levodopa 25-100 Tab), 1 TAB PO Q4H, (Reported) Docusate Sodium (Docusate Sodium), 1 CAP PO Q12H, (Reported) Doxazosin Mesylate (Doxazosin Mesylate), 1 TAB PO DAILY, (Reported) Entacapone (Entacapone), 1 TAB PO TID, (Reported) Famotidine (Pepcid), 1 TAB PO Q12H, (Reported) Gabapentin (Gabapentin), 1 TAB PO TID, (Reported) Levetiracetam (Keppra), 5 ML PO Q12H, (Reported) Melatonin (Melatonin), 9 MG PO HS, (Reported) Metoprolol Tartrate (Lopressor tablet), 12.5 MG PO BID, (Reported) Paroxetine Hcl (PAXIL tablet), 1 TAB PO HS, (Reported) Polyethylene Glycol 3350* (Miralax*), 17 GM PO DAILY, (Reported) Saccharomyces Boulardii (Probiotic), 1 CAP PO Q12H, (Reported) Sennosides (Senna), 2 TAB PO Q12H, (Reported) Spironolactone (Aldactone), 1 TAB PO DAILY, (Reported) Valproic Acid (As Sodium Salt) (Valproic Acid), 5 ML PO BID, (Reported) Scheduled PRN Acetaminophen (Acetaminophen), 650 MG PO Q6H PRN for pain, (Reported) Ipratropium/Albuterol Sulfate (IPRAT-ALBUT 0.5-3(2.5) MG/3 ML nebule), 1 VIAL NEB Q6H PRN for SOB or wheezing, (Reported) Lorazepam (Ativan), 0.5 MG PO Q6H PRN for for anxiety/agitation, (Reported) Mag Hydrox/Al Hydrox/Simeth (Mag-Al Plus Suspension), 30 ML PO Q4H PRN for indigestion/dyspepsia, (Reported) Magnesium Hydroxide (Milk of Magnesia), 30 ML PO Q72H PRN for constipation, (Reported) Tramadol HCl (Tramadol HCl), 1 TAB PO Q4H PRN for pain, (Reported) Past Medical History Past Medical History: Dementia, Parkinson's Disease, Coronary Artery Disease Past Surgical History: noncontributory Patient History: Alzheimer disease Alcohol Use: None Lives with: Other Lives In: Assisted Care Occupation: disabled Review of Systems All Other Systems at this time: Reviewed and Negative ROS Patient denies any other acute symptoms other than above. All other systems are negative Physical Exam Physical Exam Vital Signs: RN Vital Signs have been reviewed: Yes Pulse Oximetry Reflects: adequate oxygenation Physical Exam General Appearance: No distress, chronically ill-appearing HEENT: Normal OP, moist oral mucosa, PERRL, EOMI Neck: supple, normal ROM, trachea midline Pulmonary: No respiratory distress, CTA, BS equal Cardiac: RRR, no murmur, rub or gallop, GI: nondistended, soft, nontender, normal bowel sounds, no guarding, no rebound Extremities: normal ROM, no swelling, non-tender Skin: intact, dry, warm, no rashes Neuro: AAOx3, speech is clear, no focal motor weakness Psych: normal affect, good eye contact, no apparent hallucination, normal speech Progress Results/Orders Results/Orders Orders - HERI BYRD MD Chest,Single View (12/18/24 14:42) Monitor (12/18/24 14:42) Saline Lock (12/18/24 14:42) Hs Troponin I W Calculations (12/18/24 17:42) Completed Orders - HERI BYRD MD Normal Saline 1000ml (Sodium Chloride 10 (12/18/24 14:45) Chest,Single View (12/18/24 14:42) Hs Troponin I W Calculations (12/18/24 14:42) Hs Troponin I W Calculations (12/18/24 16:42) Normal Saline 1000ml (Sodium Chloride 10 (12/18/24 15:10) Cbc/Diff (12/18/24 15:27) CMP (12/18/24 15:27) Medications Received in ER Medications (Trade) Dose Ordered Sig/Ger Route PRN Reason Start Time Stop Time Status Last Admin Dose Admin (sodium chloride 1000ml IV soln) 500 ml ONCE ONCE IVB 12/18/24 15:10 12/18/24 15:13 DC 12/18/24 15:36 500 ML Vital Signs 12/18/24 12/18/24 12/18/24 14:21 14:31 15:45 Temp 97.7 Pulse 60 60 Resp 17 18 17 B/P (MAP) 102/60 Pulse Ox 95 96 O2 Flow Rate 0 0 Laboratory Tests Test 12/18/24 15:15 12/18/24 16:30 White Blood Count 9.0 Red Blood Count 4.46 L Hemoglobin 12.8 L Hematocrit 38.7 L Mean Corpuscular Volume 86.8 Mean Corpuscular Hemoglobin 28.7 Mean Corpuscular Hemoglobin Concent 33.0 Red Cell Distribution Width 15.7 H Platelet Count 283 Mean Platelet Volume 7.8 Neutrophils (%) (Auto) 72.5 Lymphocytes (%) (Auto) 15.5 L Monocytes (%) (Auto) 10.0 Eosinophils (%) (Auto) 1.6 Basophils (%) (Auto) 0.4 Neutrophils # (Auto) 6.5 Lymphocytes # (Auto) 1.4 Monocytes # (Auto) 0.9 Eosinophils # (Auto) 0.1 Basophils # (Auto) 0.0 CBC Comment Sodium Level 144 Potassium Level 4.7 Chloride Level 107 Carbon Dioxide Level 29.2 Anion Gap 8 Blood Urea Nitrogen 35 H Creatinine 0.83 Estimated GFR/1.73 m2 > 90 BUN/Creatinine Ratio 42.2 H Glucose Level 90 Calcium Level 9.0 Total Bilirubin 0.2 Aspartate Amino Transf (AST/SGOT) 20 Alanine Aminotransferase (ALT/SGPT) 10 L Alkaline Phosphatase 94 Troponin I High Sensitivity 5 4 Total Protein 7.5 Albumin 2.6 L Globulin 4.9 H Albumin/Globulin Ratio 0.5 L Chemistry Comments Troponin I High Sens Percent Delta 20 Troponin I Hi Sens Absolute Change -1 Medical Decision Making Additional info obtained from: old records, family Findings Differential diagnosis includes but is not limited to: Pneumonia, bronchitis, acute coronary syndrome, chest wall pain EKG independent interpretation: Performed at 5:54 p.m.. Atrial paced, heart rate 60, normal axis, normal ST segments Chest x-ray, single view, indication: Cough Independent interpretation: Pacemaker present, lungs are clear, normal mediastinum, normal cardiac silhouette, no acute cardiopulmonary process Laboratory data independent interpretation: CBC: Unremarkable, mild anemia hemoglobin 12.8 CMP: Unremarkable 1st troponin: 5 2nd troponin: 4 Emergency department course/medical decision-making: Patient is a 69-year-old man who comes in with some reports of sharp chest pain earlier today and associated cough. Chest x-ray is unremarkable. No evidence of congestive heart failure pneumonia. Do not suspect acute coronary syndrome. In addition the patient is DNR and selective treatment to begin with. No evidence of a medical or surgical emergency has been identified. Patient is stable for discharge. Departure Time of Disposition: 16:59 Disposition: 01 HOME / SELF CARE / HOMELESS Impression: Primary Impression: Chest pain of unknown etiology Condition: Improved Discharge Instructions: Nonspecific Chest Pain, Adult, [id number] Education Educated: Patient, Family Educated regarding: diagnosis, treatment, need for follow up Signature Scribe Signature: No scribe Attestation: No scribe PHILLIP HAMLIN NP Dec 18, 2024 14:09 HERI BYRD MD Dec 18, 2024 14:57
[2024-12-18] MEDS ORDERED: normal saline 1000ML IV soln IVB ONE (14:45)
[2024-12-18] MEDS: normal saline 1000ML IV soln IVB ONE (15:36)
[2024-12-18 15:42] LABS: MEAN PLATELET VOLUME 7.8 FL (7.4-10.4); RED CELL DISTRIBUTION WIDTH 15.7 % (11.5-14.5)
[2024-12-18 15:44] LABS: CREATININE 0.83 MG/DL (0.60-1.10); TOTAL CARBON DIOXIDE 29.2 MMOL/L (24-32); eCRCL 69 ML/MIN; eGFR > 90 ML/MIN
[2024-12-18 17:52] VITALS: TEMP 97.7
[2024-12-18 17:56] VITALS: BP 176/110; PULSE 65; RESP 19; O2SAT 96
--- NOTE | 2024-12-18 17:56 | ELECTROCARDIOGRAPH REPORT ---
[facility] Test Date: 2024-12-18 Test Time: 17:54:59 Pat Name: TERESA JUAREZ Department: EMERGENCY ROOM Room: Gender: M Systems Auditor: : 1955 Requested By: HERI BYRD Order Number: [id number] Reading MD: Measurements Intervals [place] Rate: 60 P: 0 NE: 69 QRS: 45 QRSD: 98 T: 44 QT: 470 QTc: 470 Interpretive Statements Atrial-paced complexes Minimal ST depression Artifact in lead(s) I,II,V1,V2 Please click the below link to view image of tracing.
--- NOTE | 2024-12-21 08:45 | RADIOLOGY REPORT ---
CHEST RADIOGRAPH Indication: sharp chest pain, cough Technique: Single frontal view of the chest was obtained COMPARISON: DI CHEST,SINGLE VIEW on DOS: 10/01/24, DI CHEST,SINGLE VIEW on DOS: 08/13/24, DI CHEST,SING LE VIEW on DOS: 05/31/24, DI CHEST,SINGLE VIEW on DOS: 05/14/24, DI CHEST,SINGLE VIEW on DOS: 4 FINDINGS: Lines and Tubes: Left chest pacemaker Lungs: Clear Pleura: No effusion. No pneumothorax. Cardiomediastinal contours: Unremarkable Bones: Unremarkable IMPRESSION: No acute disease.
== END 2024-12-18 18:12 | disposition home or self-care (01) ==
LOC: ER 14:07
DX: R07.9 Chest pain, unspecified (principal); I11.0 Hypertensive heart disease with heart failure; I50.9 Heart failure, unspecified; I48.91 Unspecified atrial fibrillation; I25.10 Atherosclerotic heart disease of native coronary artery without angina pectoris; J44.9 Chronic obstructive pulmonary disease, unspecified; Z86.73 Personal history of transient ischemic attack (TIA), and cerebral infarction without residual deficits; Z95.0 Presence of cardiac pacemaker; Z88.1 Allergy status to other antibiotic agents; Z88.8 Allergy status to other drugs, medicaments and biological substances; Z79.899 Other long term (current) drug therapy
CPT/HCPCS: 36415; 71045; 80053; 84484; 85025; 93005; 96360; 99285; J7030; J7040; A6590

== ENCOUNTER 2025-01-27 21:52 | Emergency (ER) | payer MEDICARE ==
[~2025-01-27] VITALS: Ht 177.8 cm; Wt 56.1 kg
[~2025-01-27 21:52] MED LIST changes: -AMI200T PO; +AMIO200T76 PO
--- NOTE | 2025-01-27 22:38 | Physician Documentation ---
History of Present Illness ~ Chief Complaint: Hypotension Stated Complaint: HYPOTENSION Time Seen by MD: 22:21 OK to notify your PCP?: Yes Primary Medical Doctor: [facility] Patient presents to the emergency room sent from his living facility for hypotension. Staff has noticed pain in mentation although he has baseline severe Parkinson's. Medication Reconciliation Allergies: Coded Allergies: milk (Verified Allergy, Intermediate, 10/01/24) SOB diphenhydramine (Verified Allergy, Unknown, 10/01/24) doxycycline (Verified Allergy, Unknown, 10/01/24) meclizine (Verified Allergy, Unknown, 10/01/24) niacin (Verified Allergy, Unknown, 10/01/24) nitroglycerin (Verified Allergy, Unknown, 10/01/24) ropinirole (Verified Allergy, Unknown, 07/15/23) Uncoded Allergies: REQUIP (Allergy, Unknown, 08/13/24) Scheduled Acetaminophen (Acetaminophen), 650 MG PO DAILY, (Reported) Amiodarone Hcl (Cordarone), 1 TAB PO DAILY, (Reported) Apixaban (Eliquis), 1 TAB PO Q12H, (Reported) Bisacodyl (Dulcolax), 1 SUPP RC DAILY, (Reported) Carbidopa/Levodopa (Carbidopa-Levodopa 25-100 Tab), 1 TAB PO Q4H, (Reported) Docusate Sodium (Docusate Sodium), 1 CAP PO Q12H, (Reported) Doxazosin Mesylate (Doxazosin Mesylate), 1 TAB PO DAILY, (Reported) Entacapone (Entacapone), 1 TAB PO TID, (Reported) Famotidine (Pepcid), 1 TAB PO Q12H, (Reported) Gabapentin (Gabapentin), 1 TAB PO TID, (Reported) Levetiracetam (Keppra), 5 ML PO Q12H, (Reported) Melatonin (Melatonin), 9 MG PO HS, (Reported) Metoprolol Tartrate (Lopressor tablet), 12.5 MG PO BID, (Reported) Paroxetine Hcl (PAXIL tablet), 1 TAB PO HS, (Reported) Polyethylene Glycol 3350* (Miralax*), 17 GM PO DAILY, (Reported) Saccharomyces Boulardii (Probiotic), 1 CAP PO Q12H, (Reported) Sennosides (Senna), 2 TAB PO Q12H, (Reported) Spironolactone (Aldactone), 1 TAB PO DAILY, (Reported) Valproic Acid (As Sodium Salt) (Valproic Acid), 5 ML PO BID, (Reported) Scheduled PRN Acetaminophen (Acetaminophen), 650 MG PO Q6H PRN for pain, (Reported) Ipratropium/Albuterol Sulfate (IPRAT-ALBUT 0.5-3(2.5) MG/3 ML nebule), 1 VIAL NEB Q6H PRN for SOB or wheezing, (Reported) Lorazepam (Ativan), 0.5 MG PO Q6H PRN for for anxiety/agitation, (Reported) Mag Hydrox/Al Hydrox/Simeth (Mag-Al Plus Suspension), 30 ML PO Q4H PRN for indigestion/dyspepsia, (Reported) Magnesium Hydroxide (Milk of Magnesia), 30 ML PO Q72H PRN for constipation, (Reported) Tramadol HCl (Tramadol HCl), 1 TAB PO Q4H PRN for pain, (Reported) Past Medical History Past Medical History: Dementia, Parkinson's Disease, Coronary Artery Disease Past Surgical History: noncontributory Patient History: Alzheimer disease Alcohol Use: None Lives with: Other Lives In: Assisted Care Occupation: disabled Review of Systems ROS All review of systems negative except as per HPI Physical Exam Vital Signs: Temperature: 98.7, Source: Oral, Heart Rate: 60, Respiratory Rate: 18, BP: 95/62, Pulse Oximetry: 97, Weight: 56.100 Physical Exam General: Patient is awake, cooperative. Occasional one word response Head: Normocephalic and atraumatic. Eyes: Conjunctival normal. EOMI. PERRL. ENT: Mucous membranes moist. Neck: Supple, trachea is midline. Chest: Clear to auscultation bilaterally without rales, rhonchi, or wheezes. There is no accessory muscle use or retractions. Cardiac: RRR without murmurs, gallops, or rubs. Abd: Soft, nondistended, nontender, with normoactive bowel sounds. No guarding, rebound, or rigidity. Progress Results/Orders Results/Orders Orders - VON OROSCO MD Electrocardiogram (01/27/25 22:22) Culture Blood (01/27/25 22:22) Chest,Single View (01/27/25 22:47) Cult Urine + [place] [address] (01/28/25 03:22) Completed Orders - VON OROSCO MD Cbc/Diff (01/27/25 22:22) MG (01/27/25 22:22) Chest,Single View (01/27/25 22:47) Procalcitonin (01/27/25 22:22) BMP (01/27/25 22:22) Lacticsepsis (01/27/25 22:22) Normal Saline 1000ml (0.9% Sodium Chlori (01/27/25 22:25) Normal Saline 1000ml (0.9% Sodium Chlori (01/28/25 02:05) Ua W/Microscopic, Cult If Ind (01/28/25 02:55) Medications Received in ER Medications (Trade) Dose Ordered Sig/Ger Route PRN Reason Start Time Stop Time Status Last Admin Dose Admin Sodium Chloride 1,000 ml @ 1,000 mls/hr ONCE ONCE IV 01/27/25 22:25 01/27/25 23:24 DC 01/27/25 22:49 1,000 MLS/HR Sodium Chloride 1,000 ml @ 1,000 mls/hr ONCE ONCE IV 01/28/25 02:05 01/28/25 03:04 DC 01/28/25 02:34 1,000 MLS/HR Vital Signs 01/27/25 01/27/25 01/28/25 01/28/25 21:57 22:52 00:58 01:34 Temp 98.7 Pulse 60 60 60 60 Resp 18 18 16 18 B/P (MAP) 95/62 134/92 (106) 148/94 (112) 141/82 (101) Pulse Ox 97 98 97 98 01/28/25 02:44 Pulse 60 Resp 17 B/P (MAP) 138/74 (95) Pulse Ox 99 Laboratory Tests Test 01/27/25 22:39 01/28/25 02:55 White Blood Count 6.6 Red Blood Count 4.35 L Hemoglobin 12.6 L Hematocrit 38.0 L Mean Corpuscular Volume 87.5 Mean Corpuscular Hemoglobin 28.9 Mean Corpuscular Hemoglobin Concent 33.1 Red Cell Distribution Width 15.5 H Platelet Count 236 Mean Platelet Volume 7.5 Neutrophils (%) (Auto) 67.0 Lymphocytes (%) (Auto) 19.5 L Monocytes (%) (Auto) 10.8 Eosinophils (%) (Auto) 2.2 Basophils (%) (Auto) 0.5 Neutrophils # (Auto) 4.4 Lymphocytes # (Auto) 1.3 Monocytes # (Auto) 0.7 Eosinophils # (Auto) 0.1 Basophils # (Auto) 0.0 CBC Comment Sodium Level 142 Potassium Level 3.9 Chloride Level 108 H Carbon Dioxide Level 29.0 Anion Gap 5 L Blood Urea Nitrogen 28 H Creatinine 0.79 Estimated GFR/1.73 m2 > 90 BUN/Creatinine Ratio 35.4 H Glucose Level 89 Lactic Acid Level 1.0 Calcium Level 8.7 Magnesium Level 2.2 Albumin 2.6 L Procalcitonin 0.06 Chemistry Comments Urine Specimen Description Cln catch midstream Urine Color Yellow Urine Clarity Slightly cloudy Urine pH 6.0 Urine Specific [place] 1.010 Urine Protein Negative Urine Glucose (UA) Negative Urine Ketones Negative Urine Occult Blood Negative Urine Nitrite Positive H Urine Bilirubin Negative Urine Urobilinogen 0.2 Urine Leukocyte Esterase Moderate H Urine RBC 0-2 Urine WBC 10-20 H Urine Squamous Epithelial Cells Few Urine Bacteria 3+ Urine Mucus Few Urine Culture Indicated Indicated Volume Urine Centrifuged 10 ml Urine Comment Microbiology Date/Time Source Procedure Growth Status 01/28/25 00:09 Blood Arm Left Blood Culture - Preliminary NEGATIVE (LESS THAN 24 HOURS) Resulted EKG/XRAY/CT/US/VASC/MRI EKG : Additional Comment EKG interpreted by myself shows time of 08/06/2040, rate 60, atrial paced rhythm, no further interpretation secondary to paced rhythm Medical Decision Making Findings Patient presents to the emergency room for evaluation of possible urinary tract infection and hypotension. Differentials include but are not limited to dehydration, sepsis, urinary tract infection therefore emergent labs ordered. Labs are reassuring for no elevation of white blood cell count. Patient's urine has a questionable urinary tract infection and compared to previous he seems to be at or near her baseline and he may be colonized however given his history of hypotension and risks versus benefit we will treat with antibiotics. Patient's blood pressure responded to IV fluids and I believe most of his hypotension is secondary to dehydration. He will be monitored closely and he is stable vitals and I believe he will do well on outpatient basis. Departure Disposition: HOME / SELF CARE / HOMELESS Impression: Primary Impression: Dehydration Additional Impression: Urinary tract infection Condition: Improved Discharge Instructions: Dehydration, Elderly, [id number], Urinary Tract Infection, Adult, [id number] Additional Instructions: Your urine was a bit unusual and this may be her baseline however given risks versus benefits I will begin an antibiotic for possible urinary tract infection. Most likely hypotension was secondary to dehydration and you responded well to IV fluids. Police increase your hydration Referrals: NO PRIMARY CARE PROVIDER (PCP) Prescriptions Cephalexin*Monohydrate* (Keflex*) 500 Mg Capsule 1 CAP PO Q12H for 10 Days, #20 CAP Prov: VON OROSCO MD 01/28/25 Education Educated: Patient, Family Educated regarding: diagnosis, treatment, need for follow up Signature Scribe Signature: No scribe Attestation: The note accurately reflects work and decisions made by me.Von Orosco MD 01/28/25 03:57 VON OROSCO MD Jan 27, 2025 22:37
[2025-01-27 22:49] LABS: MEAN PLATELET VOLUME 7.5 FL (7.4-10.4); RED CELL DISTRIBUTION WIDTH 15.5 % (11.5-14.5)
[2025-01-27] MEDS: normal saline 1000ml 1,000 ML IV ONE (22:49)
--- NOTE | 2025-01-27 23:09 | RADIOLOGY REPORT ---
Procedure: DI CHEST,SINGLE VIEW 01/27/2025 10:42 PM Indication: SEPSIS Comparison: DI CHEST,SINGLE VIEW on DOS: 12/18/24, DI CHEST,SINGLE VIEW on DOS: 10/01/24, DI CHEST,SINGL E VIEW on DOS: 08/13/24, DI CHEST,SINGLE VIEW on DOS: 05/31/24, DI CHEST,SINGLE VIEW on DOS: 05/14/24 TECHNIQUE: DI CHEST,SINGLE VIEW FINDINGS/IMPRESSION: There is mild prominence of the interstitial markings. Unchanged cardiomediastinal silhouette. No ple ural effusion or pneumothorax. No acute osseous abnormality. Left-sided dual-chamber pacemaker.
[2025-01-27 23:47] LABS: CREATININE 0.79 MG/DL (0.60-1.10); TOTAL CARBON DIOXIDE 29.0 MMOL/L (24-32); eCRCL 69 ML/MIN; eGFR > 90 ML/MIN
[2025-01-28] MEDS: normal saline 1000ml 1,000 ML IV ONE (02:34)
[2025-01-28 03:14] LABS: LEUKOCYTE ESTERASE ,URINE MODERATE (Neg); NITRITES, URINE POSITIVE (Neg); OCCULT BLOOD,URINE NEGATIVE (Neg)
[2025-01-28 03:19] LABS: UA COLLECTION TYPE CLN CATCH MIDSTREAM
[2025-01-28 03:21] LABS: MUCUS STRANDS FEW /LPF (Neg); SQUAMOUS EPITHELIAL CELL,UR FEW /LPF (FEW)
[2025-01-28] MEDS ORDERED: CEPH-585 PO (03:56)
[2025-01-28 06:28] VITALS: BP 152/116; PULSE 60; RESP 17; O2SAT 97
[2025-01-28 06:56] VITALS: TEMP 98.7
--- NOTE | 2025-01-28 06:56 | ELECTROCARDIOGRAPH REPORT ---
[facility] Test Date: 2025-01-27 Test Time: 22:41:42 Pat Name: TERESA JUAREZ Department: EMERGENCY ROOM Room: Gender: M Cardiopulmonary Specialist: : 1955 Requested By: JULIO MULLER Order Number: [id number] Reading MD: Measurements Intervals [place] Rate: 60 P: 0 AL: 71 QRS: 13 QRSD: 112 T: 10 QT: 485 QTc: 485 Interpretive Statements Atrial-paced complexes Borderline intraventricular conduction delay Abnormal R-wave progression, early transition Borderline prolonged QT interval Artifact in lead(s) I,II,aVR,aVF Please click the below link to view image of tracing.
== END 2025-01-28 07:00 | disposition home or self-care (01) ==
LOC: ER 21:53
DX: E86.0 Dehydration (principal); N39.0 Urinary tract infection, site not specified; I95.9 Hypotension, unspecified; F02.80 Dementia in other diseases classified elsewhere, unspecified severity, without behavioral disturbance, psychotic disturbance, mood disturbance, and anxiety; G20.A1 Parkinson's disease without dyskinesia, without mention of fluctuations; I25.10 Atherosclerotic heart disease of native coronary artery without angina pectoris; Z91.011 Allergy to milk products; Z88.1 Allergy status to other antibiotic agents; Z88.8 Allergy status to other drugs, medicaments and biological substances
CPT/HCPCS: 36415; 71045; 80048; 81001; 83605; 83735; 84145; 85025; 87040; 87077; 87088; 87186; 93005; 96360; 96361; 99285; J7030

== ENCOUNTER 2025-05-07 15:31 | Emergency (ER) | payer OTHER, MEDICARE, MEDICAID ==
[~2025-05-07] VITALS: Ht 185.4 cm; Wt 69.0 kg
[~2025-05-07 15:31] MED LIST changes: -ACET650T12 PO; -LOP12.5T PO; +LOP25T PO; +MULT-1074 PO; -SPIR25TA PO; +VITC500T PO
--- NOTE | 2025-05-07 15:39 | ELECTROCARDIOGRAPH REPORT ---
[facility] Test Date: 2025-05-07 Test Time: 15:34:26 Pat Name: TERESA JUAREZ Department: EMERGENCY ROOM Room: Gender: M Tutor: MARCELLE : 1955 Requested By: DEPARTMENT EMERGENCY Order Number: [id number] Reading MD: Dr. Miki Romano Measurements Intervals [place] Rate: 60 P: 0 FL: 170 QRS: 34 QRSD: 94 T: 32 QT: 421 QTc: 421 Interpretive Statements Atrial-paced rhythm Electronically Signed On 05-10-2025 9:40:[address] Miki Romano Please click the below link to view image of tracing.
[2025-05-07 15:44] VITALS: PULSE 60; RESP 21; O2SAT 92
[2025-05-07 15:57] LABS: MEAN PLATELET VOLUME 8.5 FL (7.4-10.4); RED CELL DISTRIBUTION WIDTH 15.6 % (11.5-14.5)
--- NOTE | 2025-05-07 16:00 | Physician Documentation ---
History of Present Illness ~ Chief Complaint: Hypotension Stated Complaint: PNEUMONIA Time Seen by MD: 15:58 OK to notify your PCP?: Yes Primary Medical Doctor: aleida Lara HPI 69-year-old male brought in by EMS with reported low blood pressure The patient has a recent history of sepsis related to pneumonia and UTI. He is at a care facility receiving antibiotics. Per EMS, he was sent in because he had low blood pressure. He was given IV fluids prior to arrival. His blood pressure has somewhat improved. Otherwise he is reportedly at his mental status baseline. History is very limited from the patient, he is essentially nonverbal. Medication Reconciliation Allergies: Coded Allergies: milk (Verified Allergy, Intermediate, 05/07/25) SOB diphenhydramine (Verified Allergy, Unknown, 05/07/25) doxycycline (Verified Allergy, Unknown, 05/07/25) meclizine (Verified Allergy, Unknown, 05/07/25) niacin (Verified Allergy, Unknown, 05/07/25) nitroglycerin (Verified Allergy, Unknown, 05/07/25) ropinirole (Verified Allergy, Unknown, 05/07/25) Uncoded Allergies: REQUIP (Allergy, Unknown, 08/13/24) Scheduled Amiodarone Hcl (Cordarone), 1 TAB PO DAILY, (Reported) Apixaban (Eliquis), 1 TAB PO Q12H, (Reported) Ascorbic Acid* (Vitamin C*), 1 TAB PO DAILY, (Reported) Bisacodyl (Dulcolax), 1 SUPP RC DAILY, (Reported) Carbidopa/Levodopa (Carbidopa-Levodopa 25-100 Tab), 1 TAB PO Q4H, (Reported) Docusate Sodium (Docusate Sodium), 1 CAP PO Q12H, (Reported) Doxazosin Mesylate (Doxazosin Mesylate), 1 TAB PO DAILY, (Reported) Entacapone (Entacapone), 1 TAB PO TID, (Reported) Famotidine (Pepcid), 1 TAB PO Q12H, (Reported) Gabapentin (Gabapentin), 1 TAB PO TID, (Reported) Levetiracetam (Keppra), 500 MG PO Q12H, (Reported) Lorazepam (Ativan), 0.5 MG PO BID, (Reported) Melatonin (Melatonin), 6 MG PO HS, (Reported) Metoprolol Tartrate* (Lopressor tablet*), 12.5 MG PO BID, (Reported) Multivitamin (Multi-Vitamin Daily), 1 TAB PO DAILY, (Reported) Paroxetine Hcl (PAXIL tablet), 1 TAB PO HS, (Reported) Polyethylene Glycol 3350* (Miralax*), 17 GM PO DAILY, (Reported) Saccharomyces Boulardii (Probiotic), 1 CAP PO Q12H, (Reported) Sennosides (Senna), 2 TAB PO Q12H, (Reported) Valproic Acid (As Sodium Salt) (Valproic Acid), 5 ML PO BID, (Reported) Scheduled PRN Acetaminophen (Acetaminophen), 650 MG PO Q6H PRN for pain, (Reported) Ipratropium/Albuterol Sulfate (IPRAT-ALBUT 0.5-3(2.5) MG/3 ML nebule), 1 VIAL NEB Q6H PRN for SOB or wheezing, (Reported) Mag Hydrox/Al Hydrox/Simeth (Mag-Al Plus Suspension), 30 ML PO Q4H PRN for indigestion/dyspepsia, (Reported) Magnesium Hydroxide (Milk of Magnesia), 30 ML PO Q72H PRN for constipation, (Reported) Tramadol HCl (Tramadol HCl), 1 TAB PO Q4H PRN for pain, (Reported) Discontinued Medications Acetaminophen (Acetaminophen), 650 MG PO DAILY, (Reported) Discontinued Reason: Other Metoprolol Tartrate (Lopressor tablet), 12.5 MG PO BID, (Reported) Discontinued Reason: Other Spironolactone (Aldactone), 1 TAB PO DAILY, (Reported) Discontinued Reason: Other Tramadol HCl (Tramadol HCl), 1 TAB PO Q4H PRN for pain, (Reported) Discontinued Reason: Other Past Medical History Past Medical History: Dementia, Parkinson's Disease, Coronary Artery Disease Past Surgical History: noncontributory Patient History: Alzheimer disease Review of Systems Unable to obtain complete ROS: altered mental status Physical Exam Vital Signs: Temperature: 98.2, Source: Axillary, Heart Rate: 60, Respiratory Rate: 21, BP: 103/74, Pulse Oximetry: 92, Weight: 69.000 Oxygen Flow Rate: 15.0 Physical Exam General: This is a chronically ill-appearing elderly man brought in by EMS, on a facemask oxygen HEENT: Atraumatic, oropharynx is dry Heart: Heart rate around 60, appears possibly paced. Normal-appearing peripheral perfusion Lungs: Coarse breath sounds bilateral, normal work of breathing, normal oxygen saturation on facemask oxygen Abdomen: Soft, nondistended, no reaction to palpation of the abdomen Neuro: Alert but is not verbal, does follow some simple commands Progress Results/Orders Results/Orders Orders - ROSSY LLOYD MD Culture Blood (05/07/25 15:39) Chest,Single View (05/07/25 15:39) Monitor (05/07/25 15:39) Oxygen (05/07/25 15:39) Saline Lock (05/07/25 15:39) Completed Orders - ORSSY LLOYD MD Cbc/Diff (05/07/25 15:39) Chest,Single View (05/07/25 15:39) Procalcitonin (05/07/25 15:39) BMP (05/07/25 15:39) Lacticsepsis (05/07/25 15:39) Man Diff (05/07/25 15:43) Ua W/Microscopic, Cult If Ind (05/07/25 16:30) Vital Signs 05/07/25 05/07/25 05/07/25 05/07/25 15:33 15:44 15:52 16:04 Temp 98.2 98.2 Pulse 60 60 60 Resp 21 21 23 16 B/P (MAP) 103/74 88/56 (67) Pulse Ox 99 92 95 O2 Delivery Nasal Cannula* O2 Flow Rate 15.0 2 4.0 FiO2 28 28 05/07/25 18:48 Pulse 60 Resp 14 B/P (MAP) 100/60 (73) Pulse Ox 97 O2 Flow Rate 4.0 Laboratory Tests Test 05/07/25 15:43 05/07/25 16:30 White Blood Count 13.7 H Red Blood Count 3.98 L Hemoglobin 11.5 L Hematocrit 35.1 L Mean Corpuscular Volume 88.1 Mean Corpuscular Hemoglobin 28.8 Mean Corpuscular Hemoglobin Concent 32.7 L Red Cell Distribution Width 15.6 H Platelet Count 285 # Mean Platelet Volume 8.5 Neutrophils (%) (Auto) 95.3 H Lymphocytes (%) (Auto) 2.3 L Monocytes (%) (Auto) 1.8 L Eosinophils (%) (Auto) 0.4 Basophils (%) (Auto) 0.2 Neutrophils # (Auto) 13.0 H Lymphocytes # (Auto) 0.3 L Monocytes # (Auto) 0.2 Eosinophils # (Auto) 0.0 Basophils # (Auto) 0.0 CBC Comment Differential Total Cells Counted 100 Neutrophils % (Manual) 96.0 H Band Neutrophils % 2.0 Lymphocytes % (Manual) 1.0 L Monocytes % (Manual) 1.0 L Platelet Estimate Normal Red Blood Cell Morphology Normal Basophilic Stippling Sodium Level 140 Potassium Level 4.7 Chloride Level 103 Carbon Dioxide Level 32.1 H Anion Gap 5 L Blood Urea Nitrogen 36 H Creatinine 0.60 Estimated GFR/1.73 m2 > 90 BUN/Creatinine Ratio 60.0 H Glucose Level 132 H Lactic Acid Level 0.8 Calcium Level 8.4 L Albumin 2.6 L Procalcitonin 0.45 Chemistry Comments Urine Specimen Description Burrell cath Urine Color Yellow Urine Clarity Clear Urine pH 7.5 Urine Specific Goodell 1.015 Urine Protein 100 H Urine Glucose (UA) Negative Urine Ketones Negative Urine Occult Blood Moderate H Urine Nitrite Negative Urine Bilirubin Negative Urine Urobilinogen 0.2 Urine Leukocyte Esterase Negative Urine RBC 20-50 Urine WBC 0-4 Urine Squamous Epithelial Cells Few Urine Bacteria None seen Urine Mucus None seen Urine Culture Indicated Not ind Volume Urine Centrifuged 10 ml Urine Comment Microbiology Date/Time Source Procedure Growth Status 05/07/25 15:47 Blood Hand Left Blood Culture - Preliminary NEGATIVE (LESS THAN 24 HOURS) Resulted Medical Decision Making Additional information obtaine: family Findings Spoke to family, who states that he actually seems to be doing well and is at his current mental status baseline Differential Dx:Considerations: Include: CVA, dehydration, dysrhythmia, electrolyte imbalance, hypotension, hypovolemia, renal failure, respiratory failure Additional Information The patient presents with reported low blood pressure. No other reported symptoms from his facility. Here in the ED, after IV fluids, his blood pressure seems to have improved. His workup is unrevealing, no evidence of acute kidney injury, worsening infection including pneumonia or urinary tract infection. Later, I spoke to his family who felt that he was actually doing well today. They think he is improving. They feel like his episodes of low blood pressure is related to his medications. On review of his meds, he is on metoprolol which could be contributing. His family felt like he was good enough to return to the care facility. Overall, no dangerous abnormality identified including no evidence of sepsis or worsening infection. He will be discharged back to his facility with instructions to decrease his metoprolol dose until they talk to his primary physician. Departure Time of Disposition: 18:02 Disposition: 03 CARE HOME FACILITY Impression: Primary Impression: Hypotension Condition: Improved Discharge Instructions: Hypotension, [id number] Referrals: NO PRIMARY CARE PROVIDER (PCP) Education Educated: Patient, Family Educated regarding: diagnosis, treatment, need for follow up Signature Scribe Signature: [email or web address] Attestation: ROSSY Nunez MD May 07, 2025 16:00
--- NOTE | 2025-05-07 16:04 | RADIOLOGY REPORT ---
CLINICAL HISTORY: Resp Failure TECHNIQUE: Single view of the chest was obtained. COMPARISON: DI CHEST,SINGLE VIEW on DOS: 05/04/25, DI CHEST,SINGLE VIEW on DOS: 05/01/25, DI CHEST,SINGLE VIEW on DOS: 04/29/25, DI CHEST,SINGLE VIEW on DOS: 01/27/25, DI CHEST,SINGLE VIEW on DOS: 12/18/24 FINDINGS: There is a dual lead left chest wall pacing device. The heart size is mildly enlarged with improving pulmonary vascular congestion. There are improving bibasilar opacities. IMPRESSION: Improving pulmonary vascular congestion. Improving bilateral lung opacities, favor improving pulmonary parenchymal edema.
[2025-05-07 16:07] LABS: CREATININE 0.60 MG/DL (0.60-1.10); TOTAL CARBON DIOXIDE 32.1 MMOL/L (24-32); eCRCL 112 ML/MIN; eGFR > 90 ML/MIN
[2025-05-07 16:11] LABS: BANDS% (MANUAL) 2.0 % (0-10); LYMPHOCYTES % (MANUAL) 1.0 % (21-51); MONOCYTES % (MANUAL) 1.0 % (2-12); NEUTROPHILS % (MANUAL) 96.0 % (42-75)
[2025-05-07 16:12] LABS: PLATELET ESTIMATE NORMAL
[2025-05-07 16:43] LABS: LEUKOCYTE ESTERASE ,URINE NEGATIVE (Neg); NITRITES, URINE NEGATIVE (Neg); OCCULT BLOOD,URINE MODERATE (Neg)
[2025-05-07 16:47] LABS: UA COLLECTION TYPE FOLEY CATH
[2025-05-07 16:53] LABS: MUCUS STRANDS NONE SEEN /LPF (Neg); SQUAMOUS EPITHELIAL CELL,UR FEW /LPF (FEW)
[2025-05-07 19:02] VITALS: BP 96/58; PULSE 60; RESP 20; TEMP 98.2; O2SAT 96
== END 2025-05-07 19:11 ==
LOC: ER 15:33
DX: I95.9 Hypotension, unspecified (principal); I25.10 Atherosclerotic heart disease of native coronary artery without angina pectoris; Z95.0 Presence of cardiac pacemaker; Z91.0110 Allergy to milk products, unspecified; Z88.1 Allergy status to other antibiotic agents; Z88.8 Allergy status to other drugs, medicaments and biological substances; Z87.440 Personal history of urinary (tract) infections; Z79.899 Other long term (current) drug therapy
CPT/HCPCS: 36415; 71045; 80048; 81001; 83605; 84145; 85007; 85025; 87040; 93005; 94760; 99285; A4620